=== PATIENT | male | born 1950 | race African-American/Black ===

== ENCOUNTER 2020-08-09 10:06 | Emergency (ER) | payer BC, OTHER ==
--- OUTSIDE RECORDS SUMMARY | 2020-08-09 10:10 | XMS REPORT | Continuity of Care Document ---
:1950 Author Organization [facility] t Address [address] [place] [address] Care Team Providers Name Role Phone Remigio Peters Attending Clinician [phone] Edison Gonzalez Attending Clinician VISIT, MARYBETH DOPPLER Attending Clinician Unavailable VISIT, [facility] XRAY Attending Clinician Unavailable Anastasiia Webb Attending Clinician Farooq Newman Attending Clinician Problems Condition Condition Condition Status Onset Resolution Last Treating Co mments Source Name Details Category Date Date Treatment Clinician Date Glaucoma Glaucoma Problem Active Richter ge 08-25 Family 00:00: Practic 00 e Hypertensi Hypertensi Problem Active [facility] ill[facility] ve ve 08-25 Family disorder Disorder 00:00: Practi c 00 e Peripheral Peripheral Problem Active 2019- [facility] vascular Vascular 08-25 Family disease Disease 00:00: Practic 00 e Glaucoma Problem Active 2013-042019-07-30 [facility] oria (disorder) 06-02 23:02:56 l Glaucoma 00:00: Josue n (disorder) 00 Active 04/01/2014 Problem 07/30/2019 Data migrated from elicit on 09/18/14. [facility] GLAUCOMA Condition Active 2013-042014-10-14 M emoria 2 09:21:50 l GLAUCOMA 00:00: Josue n 00 Active 04/01/2014 Condition 5 [facility] Group Hyperlipid Problem Active 2019-07-30 emoria emia 11-10 23:02:56 l (disorder) 00:00: Josue n Hyperlipid 00 emia (disorder) Active 11/10/2013 Problem 07/30/2019 Data migrated from elicit on 09/18/14. [facility] Group HYPERLIPID Condition Active 2013-0 2014-10-14 Memoria EMIA - 09:21:50 l 00:00: Wesly HYPERLIPID 00 EMIA Active 11/10/2013 Condition 5 [facility] Backache Problem Active 2019-07-30 Mem oria (finding) 23:02:56 l Backache Josue n (finding) Active Problem 07/30/2019 [facility] Group Benign Problem Active 2019-07-30 Memor ia essential 23:02:56 l hypertensi Benign Herm mecca on essential (disorder) hypertensi on (disorder) Active Problem 07/30/2019 Data migrated from elicit on 09/18/14. [facility] Group Hyperglyce Problem Active 2019-07-30 M emoria mar 23:02:56 l (disorder) Josue n Hyperglyce mar (disorder) Active Problem 07/30/2019 Data migrated from elicit on 09/18/14. 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 23:02:56 l finding Optic Wesly (finding) disc cup finding (finding) Active Problem 07/30/2019 [facility] Group Peripheral Problem Active 2019-07-30 M emoria nerve 23:02:56 l disease Wesly (disorder) Peripheral nerve disease (disorder) Active Problem 07/30/2019 [facility] Group 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 23:02:56 l (disorder) Spinal Herm mecca stenosis (disorder) Active Problem 07/30/2019 [facility] Group BACK PAIN Condition Active 2014-10-14 Memoria 09:21:50 l BACK [place] PAIN Active Condition 10/14/2014 Medical Group PVD Condition Active 2014-10-14 Mem oria 09:21:50 l PVD Wesly Active Condition 10/14/2014 Medical Group HYPERGLYCE Condition Active 2014-10-14 Memoria MAR 09:21:50 l [place] HYPERGLYCE MAR Active Condition 10/14/2014 Medical Group ESSENTIAL Condition Active 2014-10-14 Memoria HYPERTENSI 09:21:50 l ON, BENIGN Josue n ESSENTIAL HYPERTENSI ON, BENIGN Active Condition 10/14/2014 [facility] Group Allergies, Adverse Reactions, Alerts Allergy Allergy Status Severity Reaction(s) Onset Inactive Treating Comm ents Source Name Type Date Date Clinician methylPR methylPR Active Carmelita Dave EDNISolo 6-25 l ne<sup>1 ne<sup>1 05:00: Josue n </sup> </sup> 00 MEDROL MEDROL Active Memoria 6-25 l 00:00: [place] 00 Social History Social Habit Start Date Stop Date Quantity Comments Source Social History 2017-12-17 2017-12-[address] [facility] vignesh 13:54:51 13:54:51 Smoking Status Start Date Stop Date Source Former Smoker [facility] Family salty Medications Ordered Filled Start Stop Current Ordering Indication Dosage Frequency Signature Comments Components Source Medication Medication Date Date Medication? Clinician (SIG) Name Name amLODIPine Yes = 1 tab, Mem oria 5 mg oral 4-06 PO, Daily, l tablet 14:07: # 30 Wesly nieves 03 Refill(s) 5, Pharmacy: [facility] amLODIPine Yes = 1 tab, Mem oria 5 mg oral 3-10 PO, Daily, l tablet 21:24: patient Wesly 00 must be seen for additional refills., # 30 tab, 0 Refill(s), Pharmacy: [facility] tramadol Yes 50 mg = 1 Michael krista hydrochlori 1-23 tab, PO, l de 50 MG 15:31: BID, # 180 Her carrasco Oral Tablet 02 tab, 1 Refill(s) cilostazol Yes 100 mg = 1 M emoria 100 mg oral 1-23 tab, PO, l tablet 15:30: BID, # 180 Florinda nn 57 tab, 3 Refill(s), Pharmacy: [facility] amLODIPine Yes 5 mg = 1 Mem oria 5 mg oral 1-23 tab, PO, l tablet 15:30: Daily, # Gardners 54 90 tab, 3 Refill(s), Pharmacy: [facility] acetaZOLAMI 2019-0 No 500 mg = 1 Memoria DE 500 mg 1-23 cap, PO, l oral 15:09: BID, 0 Gardners capsule, 00 Refill(s) extended release Latanoprost Yes 1 drp, Michael krista chandrakant Bunod -23 BOTH EYES, l 0.24 MG/ML 15:09: QPM, 0 Florinda nn Ophthalmic 00 Refill(s) Solution [Vyzulta] tramadol 2017-04 No 50 mg = 1 Michael krista hydrochlori 0-16 tab, PO, l de 50 MG 17:42: BID, # 180 Her carrasco Oral Tablet 00 tab, 1 Refill(s) cilostazol 2017-04 No 100 mg = 1 M emoria 100 mg oral 0-16 tab, PO, l tablet 17:42: BID, # 180 Florinda nn 00 tab, 3 Refill(s), Pharmacy: [facility] [place] amLODIPine 2017-04 No 5 mg = 1 Mem oria 5 mg oral 0-16 tab, PO, l tablet 17:42: Daily, # Wesly 00 90 tab, 3 Refill(s), Pharmacy: [facility] tramadol 2017-04 No 50 mg = 1 Michael krista hydrochlori 0-15 tab, PO, l de 50 MG 19:50: BID, # 180 Her carrasco Oral Tablet 00 tab, 1 Refill(s) Super B Yes 1 tab, PO, Michael krista Complex 8-28 Daily, # l oral tablet 13:55: 30 tab, 0 H ermann 00 Refill(s) tramadol Yes 50 mg = 1 Michael krista hydrochlori 5-29 tab, PO, l de 50 MG 13:57: BID, X 30 Herm mecca Oral Tablet 00 day, # 60 tab, 3 Refill(s) PLETAL 100 Yes bid Memoria MG TABS 6-25 l 09:21: Gardners 50 PRAVACHOL 0 Yes qd Memoria 20 MG TABS 6-25 l 09:21: Wesly 50 MEDROL No as Memoria (DEEJAY) 4 MG 6-11 directed l TABS 00:00: Wesly 00 TRAMADOL 0 Yes 1 po q6h Memor ia HCL 50 MG 7-22 prn back l TABS 00:00: pain Wesly 00 CYCLOBENZAP Yes 1 po qhs Me moria RINE HCL 10 7-22 to relax l MG TABS 00:00: back TRAMADOL Yes 1 po q6h Memor ia HCL 50 MG 7-22 prn back l TABS 00:00: pain CYCLOBENZAP Yes 1 po qhs Me moria RINE HCL 10 7-22 to relax l MG TABS 00:00: back TRAMADOL Yes 1 po q6h Memor ia HCL 50 MG 7-22 prn back l TABS 00:00: pain CYCLOBENZAP Yes 1 po qhs Me moria RINE HCL 10 7-22 to relax l MG TABS 00:00: back LUMIGAN 2012-04 Yes one gtt Memoria 0.01 % SOLN 0-10 daily l 00:00: MELOXICAM 2012-04 Yes 1 po qam Michael krista 15 MG TABS 0-10 pc l 00:00: MELOXICAM 2012-04 Yes 1 po qam Michael krista 15 MG TABS 0-10 pc l 00:00: COMBIGAN Yes takes one Michael krista 0.2-0.5 % 9-13 drop twice l SOLN 00:00: a day TRAVATAN Z No take one Mem oria 0.004 % 9-13 drop once l SOLN 00:00: a day TRAVATAN Z No take one Mem oria 0.004 % 9-13 drop once l SOLN 00:00: a day AMLODIPINE Yes take one Mem oria BESYLATE 5 7-09 tab daily l MG TABS 00:00: AMLODIPINE Yes take one Mem oria BESYLATE 5 7-09 tab daily l MG TABS 00:00: AMLODIPINE Yes take one Mem oria BESYLATE 5 7-09 tab daily l MG TABS 00:00: acetazolami acetazolami No 1capsul BID acetazolam Village de ER 500 de ER 500 e(s) moreno ER 500 Family mg mg mg Practic capsule,ext capsule,ext capsule,ex e ended ended tended release release release Take 1 Take 1 Take 1 capsule capsule capsule twice a day twice a day twice a by oral by oral day by route. route. oral route. amlodipine amlodipine No 1 Q1D amlodipine [facility] 5 mg tablet 5 mg tablet 5 mg F amily Take 1 Take 1 tablet Practic tablet tablet Take 1 e every day every day tablet by oral by oral every day route. route. by oral route. Aspir-81 mg Aspir-81 mg No 1 Q1D Aspir-81 Village tablet,janene tablet,janene mg F amily yed release yed release tablet,del Practic Take 1 Take 1 ayed e tablet tablet release every day every day Take 1 by oral by oral tablet route. route. every day by oral route. cilostazol cilostazol No 1 BID cilostazol [facility] 100 mg 100 mg 100 mg Family tablet Take tablet Take tablet Practic 1 tablet 1 tablet Take 1 e twice a day twice a day tablet by oral by oral twice a route. route. day by oral route. Combigan Combigan No Combigan Peyton fly 0.2 %-0.5 % 0.2 %-0.5 % 0.2 %-0.5 Family eye drops eye drops % eye Prac tic INSTILL 1 INSTILL 1 drops e DROP INTO DROP INTO INSTILL 1 AFFECTED AFFECTED DROP INTO EYE(S) BY EYE(S) BY AFFECTED OPHTHALMIC OPHTHALMIC EYE(S) BY ROUTE EVERY ROUTE EVERY OPHTHALMIC 12 HOURS 12 HOURS ROUTE EVERY 12 HOURS Rhopressa Rhopressa No Rhopressa [facility] 0.02 % eye 0.02 % eye 0.02 % eye Family drops drops drops Practic INSTILL 1 INSTILL 1 INSTILL 1 e DROP INTO DROP INTO DROP INTO AFFECTED AFFECTED AFFECTED EYE(S) BY EYE(S) BY EYE(S) BY OPHTHALMIC OPHTHALMIC OPHTHALMIC ROUTE ONCE ROUTE ONCE ROUTE ONCE DAILY INTHE DAILY INTHE DAILY EVENING EVENING INTHE EVENING Vyzulta Vyzulta No Vyzulta Villag e 0.024 % eye 0.024 % eye 0.024 % Family drops drops eye drops Practic INSTILL 1 INSTILL 1 INSTILL 1 e DROP INTO DROP INTO DROP INTO AFFECTED AFFECTED AFFECTED EYE(S) BY EYE(S) BY EYE(S) BY OPHTHALMIC OPHTHALMIC OPHTHALMIC ROUTE ONCE ROUTE ONCE ROUTE ONCE DAILY INTHE DAILY INTHE DAILY EVENING EVENING INTHE EVENING Vital Signs Vital Name Observation Time Observation Value Comments Source Height 2019-08-26 00:00:00 73 [in_i] [facility] BMI (Body Mass Index) 2019-08-26 00:00:00 29 kg/m2 [facility] Body Weight 2019-08-26 00:00:00 220 [lb_av] [facility] Systolic (mm Hg) 2018-12-31 13:33:00 Michael rial [place] Diastolic (mm Hg) 2018-12-31 13:33:00 Mem orial [place] Heart Rate 2018-12-31 13:33:00 [facility] [place] Weight 2018-12-31 13:33:00 [facility] [place] Weight 2018-08-12 14:19:00 [facility] [place] BMI Calculated 2018-08-12 14:19:00 Memori al [place] Systolic (mm Hg) 2018-08-12 14:19:00 Michael rial [place] Diastolic (mm Hg) 2018-08-12 14:19:00 Mem orial [place] Heart Rate 2018-08-12 14:19:00 [facility] [place] Height 2018-08-12 14:19:00 182.88 cm [facility] [place] Temperature Oral (F) 2018-08-12 14:19:00 97.7 F [facility] [place] Weight 2018-05-14 15:04:00 [facility] [place] BMI Calculated 2018-05-14 15:04:00 Memori al [place] Height 2018-05-14 15:04:00 182.88 cm [facility] [place] Temperature Oral (F) 2018-05-14 15:04:00 97.8 F [facility] [place] Systolic (mm Hg) 2018-05-14 15:04:00 Michael rial [place] Diastolic (mm Hg) 2018-05-14 15:04:00 Mem orial [place] Heart Rate 2018-05-14 15:04:00 [facility] [place] Height 2017-12-17 13:51:00 185.42 cm [facility] [place] Weight 2017-12-17 13:51:00 [facility] [place] BMI Calculated 2017-12-17 13:51:00 Memori al [place] Systolic (mm Hg) 2017-12-17 13:51:00 Michael rial [place] Diastolic (mm Hg) 2017-12-17 13:51:00 Mem orial [place] Heart Rate 2017-12-17 13:51:00 [facility] BMI Calculated 2017-09-17 13:27:00 Memori al [place] Height 2017-09-17 13:27:00 180.34 cm [facility] Weight 2017-09-17 13:27:00 [facility] [place] Heart Rate 2017-09-17 13:27:00 [facility] [place] Systolic (mm Hg) 2017-09-17 13:27:00 Michael rial [place] Diastolic (mm Hg) 2017-09-17 13:27:00 Mem orial [place] Height 2017-03-20 14:54:00 180.34 cm [facility] BMI Calculated 2017-03-20 14:54:00 Memori al [place] Weight 2017-03-20 14:54:00 [facility] [place] Heart Rate 2017-03-20 14:54:00 [facility] [place] Systolic (mm Hg) 2017-03-20 14:54:00 Michael rial [place] Diastolic (mm Hg) 2017-03-20 14:54:00 Mem orial [place] Weight 2014-10-14 14:21:50 [facility] [place] Temperature Oral (F) 2014-10-14 14:21:50 97 F [facility] [place] Heart Rate 2014-10-14 14:21:50 [facility] [place] Systolic (mm Hg) 2014-10-14 14:21:50 Michael rial [place] Diastolic (mm Hg) 2014-10-14 14:21:50 Mem orial [place] Weight 2014-09-30 14:25:10 [facility] [place] Temperature Oral (F) 2014-09-30 14:25:10 98 F [facility] Heart Rate 2014-09-30 14:25:10 [facility] Systolic (mm Hg) 2014-09-30 14:25:10 Michael rial [place] Diastolic (mm Hg) 2014-09-30 14:25:10 Mem orial [place] Weight 2014-04-01 20:23:14 [facility] Temperature Oral (F) 2014-04-01 20:23:14 97.2 F [facility] Heart Rate 2014-04-01 20:23:14 [facility] Systolic (mm Hg) 2014-04-01 20:23:14 Michael rial [place] Diastolic (mm Hg) 2014-04-01 20:23:14 Mem orial [place] Weight 2013-11-10 15:47:40 [facility] Temperature Oral (F) 2013-11-10 15:47:40 97 F [facility] [place] Heart Rate 2013-11-10 15:47:40 [facility] [place] Systolic (mm Hg) 2013-11-10 15:47:40 Michael rial [place] Diastolic (mm Hg) 2013-11-10 15:47:40 Mem orial [place] Weight 2013-01-29 20:49:21 [facility] Heart Rate 2013-01-29 20:49:21 [facility] Systolic (mm Hg) 2013-01-29 20:49:21 Michael rial [place] Diastolic (mm Hg) 2013-01-29 20:49:21 Mem orial [place] Height 2013-01-29 20:49:21 [facility] [place] Height 2012-01-03 20:15:20 [facility] Weight 2012-01-03 20:15:20 [facility] Heart Rate 2012-01-03 20:15:20 [facility] Systolic (mm Hg) 2012-01-03 20:15:20 Michael rial [place] Diastolic (mm Hg) 2012-01-03 20:15:20 Mem orial [place] Procedures Procedure Date / Time Performed Performing Clinician [facility] e Eye examination 2016-11-20 05:00:00 Ben carrasco colonoscopy 2002-12-18 21:11:03 Ben carrasco Previous back surgery [facility] Darrel ermann Plan of Care Planned Activity Planned Date Details Comments Source Instructions [facility] Practice Encounters Start End Encounter Admission Attending Care Care Encounter Source Date/Time Date/Time Type Type Clinicians Facility Department ID 2020-08-08 2020-08-08 Outpatient Fran [facility] [id number] 00:00:00 00:00:00 Remigio [id number] Tate [id number] 2020-07-11 2020-07-11 Outpatient Fran [facility] [id number] 00:00:00 00:00:00 Remigio [id number] Tate [id number] 2020-06-03 2020-06-03 Outpatient Fran [facility] [id number] 00:00:00 00:00:00 Remigio [id number] Tate [id number] 2020-05-20 2020-05-20 Outpatient Fran [facility] [id number] 00:00:00 00:00:00 Remigio [id number] Tate [id number] 2019-08-26 2019-08-26 Kristina [facility] [place] - [id number] V illage 00:00:00 00:00:00 [facility] wes holder, DIESEL ENGINE I PIPE FITTER: Levi - Esther dale [address] [email or web address] [facility], [address], [place] [address] , Ph. 2019-07-27 2019-07-28 Outpatient [facility] [id number] 09:05:10 23:59:59 08 2019-06-30 2019-07-01 Outpatient [facility] [id number] 08:36:00 23:59:59 07 2019-02-17 2019-02-17 Outpatient Lisa, [facility] [id number] 09:00:00 09:00:00 Sydnee Hogan 2019-01-15 2019-01-15 Outpatient VISIT, [facility] [id number] 08:30:00 23:59:59 NURSE [facility] 27 DOPPLER 2019-01-12 2019-01-13 Outpatient [facility] [id number] 10:44:05 10:44:05 21 2019-01-12 2019-01-13 Outpatient [facility] [id number] 10:43:44 10:43:44 20 2019-01-12 2019-01-13 Outpatient [facility] [id number] 10:43:15 10:43:15 19 2019-01-04 2019-01-05 Outpatient [facility] [id number] 10:56:27 10:56:27 18 2019-01-01 2019-01-02 Outpatient [facility] [id number] 16:37:49 16:37:49 17 2018-12-31 2018-12-31 Outpatient VISIT, [facility] [id number] 09:45:00 23:59:59 NURSE [facility] 26 XRAY 2018-12-31 2018-12-31 Outpatient Konawa, [facility] [id number] 08:30:00 23:59:59 Mireya 25 me Laurent 2018-08-12 2018-08-12 Outpatient Lisa, MG MG [id number] 09:15:00 23:59:59 Sydnee Moe [facility] [place] 2018-07-20 2018-07-21 Outpatient MG MG [id number] 07:57:04 07:57:04 15 2018-05-14 2018-05-14 Outpatient Lisa, MG MG [id number] 09:15:00 23:59:59 Sydnee 20 [facility] 2018-05-14 2018-05-14 Outpatient Lisa, MG MG [id number] 09:15:00 23:59:59 Sydnee 20 [facility] 2018-02-03 2018-02-04 Outpatient MG MG [id number] 13:32:00 23:59:59 06 2017-12-17 2017-12-17 Outpatient Trent, [facility] [id number] 09:00:00 23:59:59 Ramon Trivedi 2017-09-17 2017-09-17 Outpatient Trent, [facility] [id number] 08:30:00 23:59:59 Ramon Trivedi 2017-07-22 2017-07-23 Outpatient MG MG [id number] 09:17:00 23:59:59 05 2017-03-20 2017-03-20 Outpatient Trent, [facility] [id number] 09:00:00 23:59:59 Ramon Trivedi Results Test Description Test Time Test Comments Results Result Comments Source Chemistry 2014-09-24 138 [facility] Florinda nn 14:05:00 Chemistry 2014-09-24 4.3 [facility] [place] nn 14:05:00 Chemistry 2014-09-24 3.7 [facility] [place] nn 14:05:00 Chemistry 2014-09-24 8.7 [facility] [place] nn 14:05:00 Chemistry 2014-09-24 0.88 [facility] [place] nn 14:05:00 Chemistry 2014-09-24 11 [facility] [place] nn 14:05:00 Chemistry 2014-09-24 54 [facility] [place] nn 14:05:00 Chemistry 2014-09-24 19 [facility] [place] nn 14:05:00 Chemistry 2014-09-24 18 [facility] [place] nn 14:05:00 Chemistry 2014-09-24 157 [facility] [place] nn 14:05:00 Chemistry 2014-09-24 37 [facility] [place] nn 14:05:00 Chemistry 2014-09-24 108 [facility] [place] nn 14:05:00 Chemistry 2014-09-24 1.56 [facility] [place] nn 14:05:00 Hematology 2014-09-24 13.2 [facility] [place] nn 14:05:00 Hematology 2014-09-24 42.0 [facility] [place] nn 14:05:00 Chemistry 2014-03-24 135 [facility] [place] nn 14:03:00 Chemistry 2014-03-24 4.3 [facility] [place] nn 14:03:00 Chemistry 2014-03-24 135 [facility] [place] nn 14:03:00 Chemistry 2014-03-24 4.3 [facility] [place] nn 14:03:00 Chemistry 2014-03-24 3.8 [facility] [place] nn 14:03:00 Chemistry 2014-03-24 8.8 [facility] [place] nn 14:03:00 Chemistry 2014-03-24 0.82 [facility] [place] nn 14:03:00 Chemistry 2014-03-24 12 [facility] [place] nn 14:03:00 Chemistry 2014-03-24 57 [facility] [place] nn 14:03:00 Chemistry 2014-03-24 21 [facility] [place] nn 14:03:00 Chemistry 2014-03-24 28 [facility] [place] nn 14:03:00 Chemistry 2014-03-24 162 [facility] [place] nn 14:03:00 Chemistry 2014-03-24 38 [facility] [place] nn 14:03:00 Chemistry 2014-03-24 116 [facility] [place] nn 14:03:00 Chemistry 2014-03-24 1.16 [facility] [place] nn 14:03:00 Chemistry 2014-03-24 1.31 [facility] [place] nn 14:03:00 Hematology 2014-03-24 13.5 [facility] [place] nn 14:03:00 Hematology 2014-03-24 41.5 [facility] [place] nn 14:03:00 Chemistry 2013-01-29 .51 [facility] [place] nn 13:58:38 Chemistry 2013-01-29 . [facility] [place] nn 13:58:38 Chemistry 2011-08-22 1.12 [facility] [place] nn 21:12:33 Chemistry 2011-08-22 1.12 [facility] [place] nn 21:12:33 Chemistry 2010-07-31 . [facility] [place] nn 14:24:50 Chemistry 2010-07-31 . [facility] nn 14:24:50
[2020-08-09 12:36] LABS: Absolute Lymphocytes (CBC) 1.2 K/uL (0.7-4.9); Basophils % 0.4 % (0-1.3); Hematocrit 41.2 % (39.6-49.0); Lymphocytes % 30.2 % (15.3-44.8); MPV 9.6 fL (7.6-11.3)
--- NOTE | 2020-08-09 12:48 | RAD REPORT ---
EXAM DESCRIPTION: RAD - Chest Single View - 08/09/2020 12:06 pm CLINICAL HISTORY: DYSPNEA COMPARISON: None TECHNIQUE: AP portable chest image was obtained 08/09/2020 12:06 pm . FINDINGS: Lungs are clear. Heart and vasculature are normal. No measurable pleural effusion and no p neumothorax. No acute bony abnormality seen. No acute aortic findings suspected. IMPRESSION: No acute cardiopulmonary process.
[2020-08-09 12:56] LABS: BUN Blood Urea Nitrogen 10 mg/dL (7-18); Bicarbonate 28 mmol/L (21-32); Glucose Level 88 mg/dL (74-106); NT PRO-BNP 135 pg/mL (<125); Potassium 4.1 mmol/L (3.5-5.1); Sodium Level 143 mmol/L (136-145); Troponin (Emerg Dept Use Only) < 0.02 ng/mL (0.0-0.045)
--- NOTE | 2020-08-09 13:02 | EDPHYS ---
Physician Documentation [facility] Name: Александр Henderson Age: 70 yrs Sex: Male : 1950 Arrival Date: 08/09/2020 Time: 10:12 Bed 13 Private MD: ED Physician Dany Barrow HPI: 08/09 11:30 This 70 yrs old Black Male presents to ER via Unassigned with complaints of Shortness rn Of Breath, Numbness Of Arm. 11:30 The patient has shortness of breath at rest. Onset: The symptoms/episode began/occurred rn 2 week(s) ago. Duration: The symptoms are intermittent. The patient's shortness of breath is aggravated by nothing, is alleviated by nothing. Associated signs and symptoms: Pertinent positives: This patient does not have any pertinent positive signs or symptoms associated with shortness of breath. Pertinent negatives: chest pain, non-productive cough, productive cough, fever, hemoptysis, loss of consciousness. Severity of symptoms: At their worst the symptoms were mild in the emergency department the symptoms are unchanged. The patient has experienced similar episodes in the past. The patient has been recently seen by a physician:. Reports 2 weeks of intermittent sob, not worse with exertion, no fever/cough/chest pain/hemoptysis. Assoc with left arm tingling. Reports hurt neck "a long time ago", and has had weakness and tingling of LUE, but recently felt some tingling of the left middle finger that was new to him. Seen for these complaints 2 weeks ago at [facility], told everything ok, told to f/u with cardiology. States had either ct scan of chest or stress test and told was normal at that time as well. No new symptoms, thought to come here because symptoms didn't go away. . Historical: - Allergies: 11:37 No Known Allergies; vg1 - Home Meds: 11:37 Acetazolamide Oral [Active]; cilostazol 100 mg oral tab [Active]; Combigan ophthalmic vg1 ophthalmic [Active]; amlodipine 5 mg tab [Active]; Aspirin Oral [Active]; vzulta [Active]; - PMHx: 11:38 Glaucoma; Hypertension; vg1 - PSHx: 11:38 Right leg stent; vg1 - Immunization history:: Adult Immunizations up to date, Client reports receiving the 2nd dose of the Covid vaccine. - Social history:: Smoking status: Patient/guardian denies using tobacco, but has a distant history of tobacco abuse. - Family history:: not pertinent. - Hospitalizations: : No recent hospitalization is reported. ROS: 11:30 Constitutional: Negative for fever, chills, and weight loss, Eyes: Negative for injury, rn pain, redness, and discharge, Neck: Negative for injury, pain, and swelling, Cardiovascular: Negative for chest pain, palpitations, and edema, Respiratory: Negative for cough, wheezing, and pleuritic chest pain, Abdomen/GI: Negative for abdominal pain, nausea, vomiting, diarrhea, and constipation, Back: Negative for injury and pain, : Negative for injury, bleeding, discharge, and swelling, MS/Extremity: Negative for injury and deformity, Skin: Negative for injury, rash, and discoloration, Neuro: Negative for headache, and seizure. Exam: 11:30 Constitutional: This is a well developed, well nourished patient who is awake, alert, rn and in no acute distress. Ambulatory to room without difficulty or labored breathing. Head/Face: Normocephalic, atraumatic. Cardiovascular: Regular rate and rhythm. No pulse deficits. Respiratory: No increased work of breathing, no retractions or nasal flaring. Clear bilateral breath sounds. Abdomen/GI: soft, non-tender Skin: Warm, dry with normal turgor. Normal color with no rashes, no lesions, and no evidence of cellulitis. MS/ Extremity: Pulses equal, no cyanosis. Neurovascular intact. Full, normal range of motion. Equal circumference. Neuro: Awake and alert, GCS 15, oriented to person, place, time, and situation. Cranial nerves II-XII grossly intact. Motor strength 5/5 in all extremities. Sensory grossly intact. Cerebellar exam normal. Normal gait. Vital Signs: 11:30 BP 145 / 83; Pulse 64; Resp 16; Temp 98.4; Pulse Ox 99% on R/A; Weight 102.06 kg; vg1 Height 6 ft. 1 in. (185.42 cm); Pain 0/10; 12:00 BP 146 / 71; Pulse 52; Resp 18; Pulse Ox 96% on R/A; vg1 11:30 Body Mass Index 29.68 (102.06 kg, 185.42 cm) vg1 MDM: 11:19 Patient medically screened. rn 13:01 Differential diagnosis: Myocardial Infarction Pneumothorax pulmonary edema. Data rn reviewed: vital signs, nurses notes, lab test result(s), EKG, radiologic studies, plain films, and as a result, I will discharge patient. Counseling: I had a detailed discussion with the patient and/or guardian regarding: the historical points, exam findings, and any diagnostic results supporting the discharge/admit diagnosis, lab results, radiology results, the need for outpatient follow up, to return to the emergency department if symptoms worsen or persist or if there are any questions or concerns that arise at home. Special discussion: I discussed with the patient/guardian in detail that at this point there is no indication for admission to the hospital. It is understood, however, that if the symptoms persist or worsen the patient needs to return immediately for re-evaluation. Based on the history and exam findings, there is no indication for further emergent testing or inpatient evaluation. I discussed with the patient/guardian the need to see the catalogue maker for further evaluation of the symptoms. ED course: No new findings today, will dc home with cardiology f/u as planned prior to today's visit. . 08/09 11:30 Order name: Basic Metabolic Panel rn 08/09 11:30 Order name: CBC with Diff rn 08/09 11:30 Order name: NT PRO-BNP rn 08/09 11:30 Order name: Troponin (emerg Dept Use Only) rn 08/09 11:30 Order name: Basic Metabolic Panel; Complete Time: 13:00 EDMS 08/09 11:30 Order name: CBC with Automated Diff; Complete Time: 13:00 EDMS 08/09 11:30 Order name: XRAY Chest (1 view); Complete Time: 13:00 rn 08/09 11:30 Order name: EKG; Complete Time: 11: rn 08/09 11:30 Order name: Cardiac monitoring; Complete Time: 12: rn 08/09 11:30 Order name: EKG - Nurse/Tech; Complete Time: 12: rn 08/09 11:30 Order name: IV Saline Lock; Complete Time: 12: rn 08/09 11:30 Order name: Labs collected and sent; Complete Time: 12: rn 08/09 11:30 Order name: NT PRO-BNP; Complete Time: 13:00 EDMS 08/09 11:30 Order name: Troponin (Emerg Dept Use Only); Complete Time: 13:00 EDMA 08/09 11:30 Order name: O2 Per Protocol; Complete Time: 12:11 rn 08/09 11:30 Order name: O2 Sat Monitoring; Complete Time: 12:11 rn Administered Medications: No medications were administered Disposition: 08/09/20 13:02 Discharged to Home. Impression: Chest pain, unspecified. - Condition is Stable. - Discharge Instructions: Cervical Radiculopathy, Nonspecific Chest Pain, Pain Without a Known Cause, Peripheral Neuropathy. - Prescriptions for Medrol (Horace) 4 mg Oral Tablets, Dose Pack - take 1 tablet by ORAL route as directed - follow package instructions; 1 packet. - Medication Reconciliation Form, Thank You Letter, Antibiotic Education, Prescription Opioid Use form. - Follow up: Private Physician; When: As needed; Reason: Recheck today's complaints, Re-evaluation by your physician. - Problem is an ongoing problem. - Symptoms have improved. Signatures: Dispatcher [employer] [facility] Dany Barrow MD MD rn Reji, Willa RN RN vg1 Corrections: (The following items were deleted from the chart) 13:35 13:02 08/09/2020 13:02 Discharged to Home. Impression: Chest pain, unspecified. vg1 Condition is Stable. Forms are Medication Reconciliation Form, Thank You Letter, Antibiotic Education, Prescription Opioid Use. Follow up: Private Physician; When: As needed; Reason: Recheck today's complaints, Re-evaluation by your physician. Problem is an ongoing problem. Symptoms have improved. rn
--- NOTE | 2020-08-09 13:02 | ER ---
Nurse's Notes [facility] Name: Александр Henderson Age: 70 yrs Sex: Male : 1950 Arrival Date: 08/09/2020 Time: 10:12 Bed 13 Private MD: Diagnosis: Chest pain, unspecified Presentation: 08/09 11:30 Chief complaint: Patient states: Shortness of breath for about a week, Denies cough, vg1 denies pain upon deep inhalation; states numbness in left first and second fingers and thumb; states has 'some blurred vision'. Pt states feels 'gurgling' in LUQ that comes and goes. Coronavirus screen: Client denies travel out of the [place] in the last 14 days. Ebola Screen: Patient negative for fever greater than or equal to 101.5 degrees Fahrenheit, and additional compatible Ebola Virus Disease symptoms. Initial Sepsis Screen: Does the patient meet any 2 criteria? No. Patient's initial sepsis screen is negative. Does the patient have a suspected source of infection? No. Patient's initial sepsis screen is negative. Risk Assessment: Do you want to hurt yourself or someone else? Patient reports no desire to harm self or others. Onset of symptoms was December 02, 2020. 11:30 Method Of Arrival: Ambulatory vg1 11:30 Acuity: BILLIE 3 vg1 Historical: - Allergies: 11:37 No Known Allergies; vg1 - Home Meds: 11:37 Acetazolamide Oral [Active]; cilostazol 100 mg oral tab [Active]; Combigan ophthalmic vg1 ophthalmic [Active]; amlodipine 5 mg tab [Active]; Aspirin Oral [Active]; vzulta [Active]; - PMHx: 11:38 Glaucoma; Hypertension; vg1 - PSHx: 11:38 Right leg stent; vg1 - Immunization history:: Adult Immunizations up to date, Client reports receiving the 2nd dose of the Covid vaccine. - Social history:: Smoking status: Patient/guardian denies using tobacco, but has a distant history of tobacco abuse. - Family history:: not pertinent. - Hospitalizations: : No recent hospitalization is reported. Screenin:38 Abuse screen: Denies threats or abuse. Nutritional screening: No deficits noted. vg1 Tuberculosis screening: No symptoms or risk factors identified. Fall Risk No fall in past 12 months (0 pts). No secondary diagnosis (0 pts). IV access (20 points). Ambulatory Aid- Crutches/Cane/Walker (15 pts). Gait- Normal/Bed Rest/Wheelchair (0 pts) Mental Status- Oriented to own ability (0 pts). Total Lal Fall Scale indicates Low Risk Score (25-44 pts). Fall prevention measures have been instituted. Side Rails Up X 2 Placed close to Nursing Station Family Present and informed to notify staff if they need to leave bedside. Assessment: 11:30 General: Appears in no apparent distress. comfortable, Behavior is calm, cooperative. vg1 Pain: Denies pain. Neuro: Level of Consciousness is awake, alert, obeys commands, Oriented to person, place, time, situation, Utility Worker are equal bilaterally Reports blurred vision numbness in left index finger, left middle finger, and left thumb. Cardiovascular: Patient's skin is warm and dry. Rhythm is sinus bradycardia. Respiratory: Airway is patent Respiratory effort is even, unlabored, Breath sounds are clear bilaterally. Respiratory: Parent/caregiver reports the patient having shortness of breath on exertion. GI: No signs and/or symptoms were reported involving the gastrointestinal system. : No signs and/or symptoms were reported regarding the genitourinary system. EENT: No signs and/or symptoms were reported regarding the EENT system. Derm: Skin is intact, is healthy with good turgor. Musculoskeletal: Circulation, motion, and sensation intact. Vital Signs: 11:30 BP 145 / 83; Pulse 64; Resp 16; Temp 98.4; Pulse Ox 99% on R/A; Weight 102.06 kg; vg1 Height 6 ft. 1 in. (185.42 cm); Pain 0/10; 12:00 BP 146 / 71; Pulse 52; Resp 18; Pulse Ox 96% on R/A; vg1 11:30 Body Mass Index 29.68 (102.06 kg, 185.42 cm) vg1 ED Course: 10:12 Patient arrived in ED. mr 11:19 Dany Barrow MD is Attending Physician. rn 11:30 Willa Mendoza, RN is Primary Nurse. vg1 11:34 Triage completed. vg1 11:39 Patient has correct armband on for positive identification. Bed in low position. Call vg1 light in reach. Side rails up X 1. 12:06 XRAY Chest (1 view) In Process Unspecified. EDMS 12:30 Initial lab(s) drawn, by me, sent to lab. EKG done, by ED staff, reviewed by Dany Barrow MD. Inserted saline lock: 20 gauge in right antecubital area, using aseptic technique. Blood collected. 13:28 No provider procedures requiring assistance completed. IV discontinued, intact, ss bleeding controlled, No redness/swelling at site. Pressure dressing applied. Administered Medications: No medications were administered Outcome: 13:02 Discharge ordered by . rn 13:28 Discharged to home ambulatory. ss 13:28 Condition: good 13:28 Discharge instructions given to patient, family, Instructed on discharge instructions, follow up and referral plans. Demonstrated understanding of instructions, follow-up care, Prescriptions given X 1. 13:35 Patient left the ED. vg1 Signatures: Dispatcher [employer] EDOR Carolyne Welsh mr Barrow, MD MD caesar Saenz Shelby, RN RN ss Garcia, Victoria RN RN vg1
[2020-08-09 13:40] VITALS: TEMP 98.4
[2020-08-09 13:41] VITALS: BP 146/71; O2SAT 96
--- NOTE | 2020-08-10 16:12 | EKG ---
Test Date: 2020-08-09 Test Time: 12:18:41 Category Director: LEV MEASUREMENT RESULTS: Intervals: Rate: 51 [place]: 176 QRSD: 82 QT: 466 QTc: 429 [place]: P: 60 [place]: 176 QRS: 48 T: 21 INTERPRETIVE STATEMENTS: Sinus bradycardia Otherwise normal ECG Compared to ECG 08/22/1992 13:18:00 Sinus rhythm no longer present Electronically Signed On 08-10-20 16:07:19 CDT by Colt Sotelo
== END 2020-08-09 13:35 | disposition home or self-care (01) ==
LOC: ER 10:06
DX: R07.9 Chest pain, unspecified (principal); I10 Essential (primary) hypertension; Z79.82 Long term (current) use of aspirin
CPT/HCPCS: 36415; 71045; 80048; 83880; 84484; 85025; 93005; 99284

== ENCOUNTER 2021-06-08 17:36 | Inpatient (IN) | payer OTHER ==
--- OUTSIDE RECORDS SUMMARY | 2021-06-08 17:40 | XMS REPORT | Continuity of Care Document ---
:1950 Author Organization [facility] t Address [address] [place] [address] Care Team Providers Name Role Phone BREANA Attending Clinician Unavailable TY CAMPA Attending Clinician Unavailable Remigio Peters Attending Clinician [phone] HENRRY Attending Clinician Unavailable Adyo_A_AH Attending Clinician Unavailable BREANA Admitting Clinician Unavailable KATHERYN Admitting Clinician Unavailable HENRRY Admitting Clinician Unavailable Colleenayo_A_AH Admitting Clinician Unavailable Payers Payer Name Policy Type Policy Number Effective Date Expiration Date [facility] [id number] (MEDICARE REPLACEMENT/ADVANT AGE - PPO) [employer] [place] [id number] 2020 2021 (MEDICARE 00:00:00 00:00:00 REPLACEMENT/ADVANT AGE - HMO) [employer] [place] - [id number] 2019 [facility] 00:00:00 (MEDICARE REPLACEMENT/ADVANT AGE - HMO) Problems Condition Condition Condition Status Onset Resolution Last Treating Co mments Source Name Details Category Date Date Treatment Clinician Date Glaucoma Glaucoma Problem Active [facility] -06 Family 00:00: Practic 00 e Hypertensi Hypertensi Problem Active [facility] - Family disorder Disorder 00:00: Practi c 00 e Peripheral Peripheral Problem Active [facility] - Family disease Disease 00:00: Practic 00 e Allergies, Adverse Reactions, Alerts This patient has no known allergies or adverse reactions. Social History Smoking Status Start Date Stop Date Source Former [facility] Medications Ordered Filled Start Stop Current Ordering Indication Dosage Frequency Signature Comments Components Source Medication Medication Date Date Medication? Clinician (SIG) Name Name acetazolami acetazolami No 1capsul BID acetazolam [facility] [...] route. amlodipine amlodipine No 1 Q1D amlodipine [facility] 5 mg tablet 5 mg tablet 5 [...] route. cilostazol cilostazol No 1 BID cilostazol [facility] 100 mg 100 mg 100 mg Family [...] EVERY 12 HOURS Rhopressa Rhopressa No Rhopressa [facility] 0.02 % eye 0.02 % eye 0.02 [...] Comments Source Height 2019-08-26 00:00:00 73 [in_i] [facility] BMI (Body Mass 2019-08-26 00:00:00 29 kg/m2 [facility] Family Index) Practice Body Weight 2019-08-26 00:00:00 220 [lb_av] [facility] Procedures This patient has no known procedures. Plan of Care Planned Activity Planned Date Details Comments Source Instructions [facility] Encounters Start End Encounter Admission Attending Care Care Encounter Source Date/Time Date/Time Type Type Clinicians Facility Department ID 2021-06-01 2021-06-01 Outpatient ERICKSON_R [facility] [address] 11:25:00 11:25:00 [facility] 2021-05-25 2021-05-25 Outpatient KATHERYN, [facility] [id number] 00:00:00 00:00:00 IRFAN [address] 2021-03-28 2021-03-28 Outpatient ERICKSON_R [facility] [address] 04:26:00 04:26:00 1221 [facility] 2021-03-28 2021-03-28 Outpatient ERICKSON_R [facility] [address] 04:26:00 04:26:00 0110 [facility] 2021-03-13 2021-03-13 Outpatient ERICKSON_R [facility] [address] 10:06:00 10:06:00 1122 [facility] 2021-03-13 2021-03-13 Outpatient Peters, [facility] [id number] 00:00:00 00:00:00 Remigio [id number] [place] [id number] 2021-03-02 2021-03-02 Outpatient ERICKSON_R [facility] [address] 10:51:00 10:51:00 1111 [facility] 2021-03-02 2021-03-02 Outpatient Fran, [facility] [id number] 00:00:00 00:00:00 Remigio [id number] [place] [id number] 2021-02-14 2021-02-14 Outpatient ERICKSON_R [facility] [address] 10:15:00 10:15:00 1026 [facility] 2021-02-14 2021-02-14 Outpatient Fran, [facility] [id number] 00:00:00 00:00:00 Remigio [id number] [place] [id number] 2021-02-10 2021-02-10 Outpatient ERICKSON_R [facility] [address] 11:46:00 11:46:00 1022 [facility] 2021-01-10 2021-01-10 Outpatient ERICKSON_R [facility] [address] [place] 03:42:00 03:42:00 0921 [facility] 2021-01-10 2021-01-10 Outpatient Fran, [facility] [id number] 00:00:00 00:00:00 Remigio [id number] [place] [id number] 2020-11-22 2020-11-22 Outpatient ERICKSON_R [facility] [address] 10:35:00 10:35:00 0803 [facility] 2020-11-22 2020-11-22 Outpatient Peters, [facility] [id number] 00:00:00 00:00:00 Remigio [id number] [place] [id number] 2020-10-13 2020-10-13 Outpatient ERICKSON_R [facility] [address] 05:15:00 05:15:00 0624 [facility] 2020-10-13 2020-10-13 Outpatient Fran [facility] [id number] 00:00:00 00:00:00 Remigio [id number] Tate [id number] 2020-08-22 2020-08-22 Outpatient ERICKSON_R [facility] [address] 10:36:00 10:36:00 0503 [facility] 2020-08-22 2020-08-22 Outpatient Fran [facility] [id number] 00:00:00 00:00:00 Remigio [id number] [place] [id number] 2020-08-17 2020-08-18 Outpatient Jose VIRGENDEBBIE, [facility] [id number] 14:09:00 17:58:00 MELI 2020-08-08 2020-08-08 Outpatient ERICKSON_R [facility] [address] 11:23:00 11:23:00 0419 [facility] 2020-08-08 2020-08-08 Outpatient Fran [facility] [id number] 00:00:00 00:00:00 Remigio [id number] Tate [id number] 2020-07-11 2020-07-11 Outpatient ERICKSON_R [facility] [address] 03:37:00 03:37:00 0322 [facility] 2020-07-11 2020-07-11 Outpatient Fran, [facility] [id number] 00:00:00 00:00:00 Remigio [id number] Tate [id number] 2020-06-13 2020-06-13 Outpatient ERICKSON_R [facility] [address] 02:12:00 02:12:00 0222 [facility] 2020-06-03 2020-06-03 Outpatient ERICKSON_R [facility] [address] 04:29:00 04:29:00 0212 [facility] 2020-06-03 2020-06-03 Outpatient Fran, [facility] [id number] 00:00:00 00:00:00 Remigio [id number] Tate [id number] 2020-05-26 2020-05-26 Outpatient ERICKSON_R [facility] [address] 12:03:00 12:03:00 0204 [facility] 2020-05-20 2020-05-20 Outpatient ERICKSON_R [facility] [address] 12:22:00 12:22:00 0129 [facility] 2020-05-20 2020-05-20 Outpatient Fran [facility] [id number] 00:00:00 00:00:00 Remigio [id number] [place] [id number] 2020-05-16 2020-05-16 Outpatient ERICKSON_R [facility] [address] [place] 10:56:00 10:56:00 0125 [facility] 2019-12-17 2019-12-17 Outpatient Evans-Mbayo VFP VFP [id number] [facility] 01:54:00 01:54:00 _A_AH [id number] Family Practic e 2019-12-16 2019-12-16 Outpatient Evans-Mbayo VFP VFP [id number] [facility] 03:09:00 03:09:00 _A_AH [id number] Family Practic e 2019-12-09 2019-12-09 Outpatient Evans-Mbayo VFP VFP [id number] [facility] 09:55:00 09:55:00 _A_AH [id number] Family Practic e 2019-12-09 2019-12-09 Outpatient Evans-Mbayo VFP VFP [id number] [facility] 09:55:00 09:55:00 _A_AH 27717 Family Practic e 2019-12-07 2019-12-07 Outpatient Evans-Mbayo VFP VFP [id number] [facility] 06:48:00 06:48:00 _A_AH [id number] Family Practic e 2019-12-02 2019-12-02 Outpatient Evans-Mbayo VFP VFP [id number] [facility] 03:11:00 03:11:00 _A_AH [id number] Family Practic e 2019-11-25 2019-11-25 Outpatient Evans-Mbayo VFP VFP [id number] [facility] 04:06:00 04:06:00 _A_AH 35719 Family Practic e 2019-11-17 2019-11-17 Outpatient Evans-Mbayo VFP VFP [id number] [facility] 02:07:00 02:07:00 _A_AH [id number] Family Practic e 2019-11-09 2019-11-09 Outpatient Evans-Mbayo VFP VFP [id number] [facility] 04:24:00 04:24:00 _A_AH [id number] Family Practic e 2019-10-20 2019-10-20 Outpatient Evans-Mbayo VFP VFP [id number] [facility] 07:32:00 07:32:00 _A_AH [id number] Family Practic e 2019-10-20 2019-10-20 Outpatient Evans-Mbayo VFP VFP [id number] [facility] 07:32:00 07:32:00 _A_AH [id number] Family Practic e 2019-10-13 2019-10-13 Outpatient Evans-Mbayo VFP VFP [id number] [facility] 01:25:00 01:25:00 _A_AH [id number] Family Practic e 2019-09-18 2019-09-18 Outpatient Evans-Mbayo VFP VFP [id number] [facility] 03:03:00 03:03:00 _A_AH [id number] Family Practic e 2019-09-18 2019-09-18 Outpatient Evans-Mbayo VFP VFP [id number] [facility] 03:03:00 03:03:00 _A_AH [id number] Family Practic e 2019-09-17 2019-09-17 Outpatient Evans-Mbayo VFP VFP [id number] [facility] 07:27:00 07:27:00 _A_AH [id number] Family Practic e 2019-08-31 2019-08-31 Outpatient Evans-Mbayo VFP VFP [id number] [facility] 11:00:00 11:00:00 _A_AH [id number] Family Practic e 2019-08-26 2019-08-26 Kristina VFP [place] - [id number] [facility] 00:00:00 00:00:00 EvansShayla [facility] Raymon holder EMERGENCY MEDICINE PHYSICIAN ASSISTANT: Medical - Practi c [address] [email or web address] [email or web address], [place] [address], [place] [address] , Ph. 2019-07-20 2019-07-20 Outpatient Leonidas [facility] [id number] [facility] 04:09:00 04:09:00 _A_ [id number] Family Practic e Results This patient has no known results.
[2021-06-08 19:01] LABS: Absolute Lymphocytes (CBC) 1.3 K/uL (0.7-4.9); Hematocrit 45.4 % (39.6-49.0); Lymphocytes % 8.6 % (15.3-44.8); MPV 8.9 fL (7.6-11.3); RBC Red Blood Cell Count 5.11 M/uL (4.33-5.43)
[2021-06-08 19:02] LABS: Protime INR 1.27
--- NOTE | 2021-06-08 19:03 | RAD REPORT ---
EXAM DESCRIPTION: CT - Ct Stroke Brain Wo Cont - 06/08/2021 6:43 pm CLINICAL HISTORY: confusion onset at 1600 COMPARISON: No comparisons TECHNIQUE: Axial 5 millimeter thick images of the head were obtained without IV contrast. All CT scans are performed using dose optimization technique as appropriate and may include automated exposure control or mA/KV adjustment according to patient size. FINDINGS: No intracranial hemorrhage, mass, or cerebral edema. No acute cortical based infarction id entifiable. No cortical edema or sulcal effacement. Atrophy changes are minimal. Scattered chronic is chemic changes are seen in the cerebral white matter. Ventricles are in proportion to the minimal vol ume loss. No extra-axial fluid collections. Patten matter-white matter differentiation is preserved. Arterial and physiologic calcifications are present. Visualized portions of the mastoid air cells, paranasal sinuses, and orbits are unremarkable. Findings telephoned to doctor Lopez 6:52 p.m. IMPRESSION: No CT evidence of acute intracranial process. Atrophy is minimal. Scattered chronic ischemic changes are present. Chronic ischemic changes can mask nonhemorrhagic acute infarction. MR brain followup can be obtained if there is ongoing concern for acute ischemia.
[2021-06-08 19:20] LABS: Albumin 3.5 g/dL (3.4-5.0); Bilirubin Direct 0.4 mg/dL (0-0.2); Bilirubin Total 1.2 mg/dL (0.2-1.0); Potassium 3.6 mmol/L (3.5-5.1); Protein, Total 8.1 g/dL (6.4-8.2)
--- NOTE | 2021-06-08 19:26 | RAD REPORT ---
EXAM DESCRIPTION: RAD - Chest Single View - 06/08/2021 7:18 pm CLINICAL HISTORY: altered mental status COMPARISON: July 2020 TECHNIQUE: AP portable chest image was obtained 06/08/2021 7:18 pm . FINDINGS: Lungs are clear. Interstitial pattern matches comparison. Heart and vasculature are normal . No measurable pleural effusion and no pneumothorax. No acute bony abnormality seen. No acute aortic findings suspected. IMPRESSION: No acute cardiopulmonary process.
--- NOTE | 2021-06-08 19:52 | ER ---
Nurse's Notes [facility] Name: Александр Henderson Age: 71 yrs Sex: Male : 1950 Arrival Date: 06/08/2021 Time: 17:41 Bed 6 Private MD: Diagnosis: Transient alteration of awareness Presentation: 06/08 18:24 Chief complaint: Spouse and/or significant other states: Spouse states she checked pt ss7 bp \T\1600 and it read error. She states pt was talking different and acting strange; altered LOC. She states she has noted improvement but now he is c/o weakness and chills. Coronavirus screen: Vaccine status: Patient reports receiving the 2nd dose of the covid vaccine. Client denies travel out of the [place] in the last 14 days. Ebola Screen: Patient negative for fever greater than or equal to 101.5 degrees Fahrenheit, and additional compatible Ebola Virus Disease symptoms Patient denies exposure to infectious person. Patient denies travel to an Ebola-affected area in the 21 days before illness onset. Initial Sepsis Screen: Does the patient meet any 2 criteria? No. Patient's initial sepsis screen is negative. Does the patient have a suspected source of infection?. Risk Assessment: Do you want to hurt yourself or someone else? Patient reports no desire to harm self or others. Onset of symptoms was June 08, 2021. 18:24 Method Of Arrival: Ambulatory 7 18:24 Acuity: BILLIE 2 ss7 Triage Assessment: 18:30 Neuro: No deficits noted. Neuro: Level of Consciousness is awake, alert, obeys ss7 commands, Oriented to person, place, time, situation. Musculoskeletal: uses cane to ambulate. Historical: - Allergies: 18:28 No Known Allergies; ss7 - Home Meds: 18:28 amlodipine 5 mg tab once daily [Active]; aspirin 81 mg oral tab daily [Active]; ss7 cilostazol 100 mg Oral tab 1 tab 2 times per day [Active]; Combigan ophthalmic [Active]; Acetazolamide Oral [Active]; - PMHx: 18:28 Glaucoma; Hypertension; ss7 - Immunization history:: Pneumococcal vaccine is not up to date, Flu vaccine is not up to date. - Social history:: Smoking status: Patient denies any tobacco usage or history of. Patient/guardian denies using tobacco, but has a distant history of tobacco abuse. Screenin:52 Abuse screen: Denies threats or abuse. Nutritional screening: No deficits noted. vg1 Tuberculosis screening: No symptoms or risk factors identified. Fall Risk No fall in past 12 months (0 pts). No secondary diagnosis (0 pts). IV access (20 points). Ambulatory Aid- Crutches/Cane/Walker (15 pts). Gait- Weak (10 pts.). Mental Status- Oriented to own ability (0 pts). Total Lal Fall Scale indicates High Risk Score (45 or more points). Fall prevention measures have been instituted. Side Rails Up X 2 Placed Close to Nursing Station Family Present and informed to notify staff if the need to leave the bedside. Assessment: 18:52 General: Appears in no apparent distress. comfortable, Behavior is calm, cooperative. vg1 Pain: Complains of pain in back Pain currently is 9 out of 10 on a pain scale. Pain began today. Neuro: Level of Consciousness is awake, alert, obeys commands, Oriented to person, place, time, situation, House Superintendent are pt has hx of left sided weakness due to past surgery. Moves all extremities. Gait is unsteady, Speech is normal, Facial symmetry appears normal, Reports dizziness, since 1600 today Denies difficulty swallowing, numbness headache. Cardiovascular: Patient's skin is warm and dry. Respiratory: Airway is patent Respiratory effort is even, unlabored, Breath sounds are clear bilaterally. GI: Patient currently denies nausea, vomiting. : No signs and/or symptoms were reported regarding the genitourinary system. EENT: No signs and/or symptoms were reported regarding the EENT system. Derm: Skin is intact, is healthy with good turgor. Musculoskeletal: Circulation, motion, and sensation intact. Range of motion: intact in all extremities. 19:00 General: Appears in no apparent distress. comfortable. 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 Gait is Speech is normal, Facial symmetry appears normal, Pupils are PERRLA, Intact no longer having s/s arrived w/, NIH 0. Cardiovascular: Heart tones S1 S2 S4 Capillary refill < 3 seconds in bilateral fingers toes Clubbing of nail beds is absent Patient's skin is warm and dry. Pulses are 3+ in right radial artery, right dorsalis pedis artery, left radial artery and left dorsalis pedis artery Rhythm is regular. Respiratory: Airway is patent Trachea midline Respiratory effort is even, unlabored, Respiratory pattern is regular, symmetrical, Breath sounds are clear. GI: Abdomen is flat, non-distended, Bowel sounds Patient currently denies nausea, vomiting. : No signs and/or symptoms were reported regarding the genitourinary system. Derm: Skin is intact, is healthy with good turgor. Musculoskeletal: Circulation, motion, and sensation intact. Capillary refill < 3 seconds, in bilateral fingers. toes. Range of motion: intact in all extremities, weakness L side. 20:00 Reassessment: No changes from previously documented assessment. Patient and/or family ll3 updated on plan of care and expected duration. Pain level reassessed. Patient is alert, oriented x 3, equal unlabored respirations, skin warm/dry/pink. Dysphagia passed. 21:00 Reassessment: No changes from previously documented assessment. Patient and/or family mk updated on plan of care and expected duration. Pain level reassessed. Patient is alert, oriented x 3, equal unlabored respirations, skin warm/dry/pink. 22:00 Reassessment: No changes from previously documented assessment. Patient and/or family mk updated on plan of care and expected duration. Pain level reassessed. Patient is alert, oriented x 3, equal unlabored respirations, skin warm/dry/pink. 23:00 Reassessment: No changes from previously documented assessment. Patient and/or family mk updated on plan of care and expected duration. Pain level reassessed. Patient is alert, oriented x 3, equal unlabored respirations, skin warm/dry/pink. 06/09 00:00 Reassessment: No changes from previously documented assessment. Patient and/or family mk updated on plan of care and expected duration. Pain level reassessed. Patient is alert, oriented x 3, equal unlabored respirations, skin warm/dry/pink. 01:00 Reassessment: No changes from previously documented assessment. Patient and/or family mk updated on plan of care and expected duration. Pain level reassessed. Patient is alert, oriented x 3, equal unlabored respirations, skin warm/dry/pink. 03:00 Reassessment: No changes from previously documented assessment. Patient and/or family mk updated on plan of care and expected duration. Pain level reassessed. Patient is alert, oriented x 3, equal unlabored respirations, skin warm/dry/pink. 04:00 Reassessment: No changes from previously documented assessment. Patient and/or family mk updated on plan of care and expected duration. Pain level reassessed. Patient is alert, oriented x 3, equal unlabored respirations, skin warm/dry/pink. 05:00 Reassessment: No changes from previously documented assessment. Patient and/or family mk updated on plan of care and expected duration. Pain level reassessed. Patient is alert, oriented x 3, equal unlabored respirations, skin warm/dry/pink. 06:00 Reassessment: No changes from previously documented assessment. Patient and/or family mk updated on plan of care and expected duration. Pain level reassessed. Patient is alert, oriented x 3, equal unlabored respirations, skin warm/dry/pink. Vital Signs: 06/08 18:24 BP 146 / 80; Pulse 87; Resp 16; Temp 97.8(TE); Weight 59.87 kg; Height 6 ft. 1 in. ss7 (185.42 cm); 18:50 BP 146 / 90; Pulse 92; Resp 17; Pulse Ox 98% ; vg1 21:00 BP 145 / 81; Pulse 76; Resp 18; Pulse Ox 98% on R/A; mk 23:40 BP 140 / 72; Pulse 69; Resp 18; Pulse Ox 98% on R/A; mk 06/09 01:00 BP 158 / 73; Pulse 69; Resp 18; Pulse Ox 98% on R/A; mk 03:00 BP 154 / 72; Pulse 68; Resp 18; Pulse Ox 99% on R/A; mk 05:00 BP 131 / 82; Pulse 71; Resp 18; Pulse Ox 98% on R/A; mk 06/08 18:24 Body Mass Index 17.42 (59.87 kg, 185.42 cm) ss7 NIH Stroke Scale Scores: 06/08 18:51 NIHSS Score: 0 cp ED Course: 17:41 Patient arrived in ED. mr 18:27 Triage completed. 7 18:43 CT Stroke Brain w/o Contrast In Process Unspecified. EDMS 18:50 Santos Calderon PA is PHCP. 18:50 Hong Lopez MD is Attending Physician. cp 18:52 Willa Mendoza, RN is Primary Nurse. vg1 18:52 Patient has correct armband on for positive identification. Placed in gown. Bed in low vg1 position. Call light in reach. Side rails up X2. Adult w/ patient. monitor car operator on. Pulse ox on. NIBP on. 18:52 Initial lab(s) drawn, by ED staff, sent to lab. Inserted saline lock: 20 gauge in left vg1 antecubital area, using aseptic technique. ,using aseptic technique. completed by ED staff Blood collected. 18:55 Arm band placed on. vg1 19:18 XRAY Chest (1 view) In Process Unspecified. EDMS 19:50 Casey Calle MD is Hospitalizing Provider. 21:00 Patient admitted, IV remains in place. 23:51 Urine Microscopic Only Sent. 06/09 02:26 Attending Physician role handed off by Hong Lopez MD asya 02:26 Santos Reyes MD is Attending Physician. [facility] 07:12 No provider procedures requiring assistance completed. Administered Medications: 06/08 21:08 Drug: NS 0.9% 750 ml Route: IV; Rate: 75 ml/hr; Site: left antecubital; mk 21:08 Drug: NS 0.9% 250 ml Route: IV; Rate: bolus; Site: left antecubital; mk 21:08 Drug: Aspirin Chewable Tablet 324 mg Route: PO; 21:08 Drug: foLIC Acid 1 mg Route: PO; Outcome: 19:51 Decision to Hospitalize by Provider. 06/09 09:43 Patient left the ED. NIH Stroke Scale - NIH Stroke Score Date: 06/08/2021 Time: 18:51 Total Score = 0 1a. Level of Consciousness (LOC) - 0(Alert) 1b. Level of Consciousness (LOC) (Month \T\ Age) - 0(Both) 1c. LOC Commands (Open \T\ Closes Eyes/Superintendent Refuse Disposal) - 0(Both) 2. Best Gaze (Lateral Gaze Paresis) - 0(Normal) 3. Visual Field Loss - 0(No visual loss) 4. Facial Palsy - 0(Normal) 5a. Left Arm: Motor (10-second hold) - 0(No drift) 5b. Right Arm: Motor (10-second hold) - 0(No drift) 6a. Left Leg: Motor (5-second hold - always test supine) - 0(No drift) 6b. Right Leg: Motor (5-second hold - always test supine) - 0(No drift) 7. Limb Ataxia (finger/nose \T\ heel/salvador - test with eyes open) - 0(Absent) 8. Sensory Loss (pinprick arms/legs/face) - 0(Normal) 9. Best Language: Aphasia (description/naming/reading) - 0(No aphasia) 10. Dysarthria (speech clarity - read or repeat words) - 0(Normal) 11. Extinction and Inattention (visual/tactile/auditory/spatial/personal) - 0(No abnormality) Initials: cp Signatures: Dispatcher [employer] Santos Ramirez MD MD cha Rivera, Carolyne mr Harley, Cyndy, RN RN ss Santos Calderon PA PA cp Willa Mendoza, RN RN vg1 Jennifer Steel, RN RN ll3 Chayito Enamorado, RN RN Liza Horn, RN RN ss7
--- NOTE | 2021-06-08 19:52 | EDPHYS ---
Physician Documentation [facility] Name: Александр Henderson Age: 71 yrs Sex: Male : 1950 Arrival Date: 06/08/2021 Time: 17:41 Bed 6 Private MD: NORMA Physician Santos Reyes HPI: 06/08 18:45 This 71 yrs old Black Male presents to ER via Ambulatory with complaints of Back Pain, cp Leg Pain, Confusion, weakness. 18:45 The patient's problem is reported as altered mental status, confused, weakness. cp 18:45 Onset: The symptoms/episode began/occurred suddenly, about 1600 today after returning cp home from [facility] in [facility]. Duration: This was a single incident, now resolved. Context: the episode(s) was witnessed, by family, , occurred at home, reports patient c/o chills and suddenly seemed confused and gait seemed off balance. reports patient was trying to put shirt on as pants and wasn't making sense when communicating with her. reports this occurred at approximately 1600 today. Currently patient is at baseline mentally and chronic weakness to left arm and leg is his normal. Historical: - Allergies: 18:28 No Known Allergies; ss7 - Home Meds: 18:28 amlodipine 5 mg tab once daily [Active]; aspirin 81 mg oral tab daily [Active]; ss7 cilostazol 100 mg Oral tab 1 tab 2 times per day [Active]; Combigan ophthalmic [Active]; Acetazolamide Oral [Active]; - PMHx: 18:28 Glaucoma; Hypertension; ss7 - Immunization history:: Pneumococcal vaccine is not up to date, Flu vaccine is not up to date. - Social history:: Smoking status: Patient denies any tobacco usage or history of. Patient/guardian denies using tobacco, but has a distant history of tobacco abuse. ROS: 18:50 Constitutional: Positive for chills, Negative for fever, poor PO intake. cp 18:50 Eyes: Negative for injury, pain, redness, and discharge. cp 18:50 ENT: Negative for drainage from ear(s), ear pain, sore throat, difficulty swallowing, difficulty handling secretions. 18:50 Cardiovascular: Negative for chest pain, edema, palpitations. 18:50 Respiratory: Negative for cough, shortness of breath, wheezing. 18:50 Abdomen/GI: Negative for abdominal pain, nausea, vomiting, and diarrhea. 18:50 Back: Positive for chronic pain. 18:50 Neuro: Positive for altered mental status, gait disturbance, Negative for headache, seizure activity, syncope, weakness. 18:50 All other systems are negative. Exam: 18:55 Constitutional: The patient appears in no acute distress, alert, awake, cp non-diaphoretic, non-toxic, well developed, well nourished. 18:55 Head/Face: Normocephalic, atraumatic. cp 18:55 Eyes: Periorbital structures: appear normal, Pupils: equal, round, and reactive to light and accomodation, Extraocular movements: intact throughout, Conjunctiva: normal, no exudate, no injection, Sclera: no appreciated abnormality, Lids and lashes: appear normal, bilaterally. 18:55 ENT: External ear(s): are unremarkable, Nose: is normal, Mouth: Lips: moist, Oral mucosa: moist, Posterior pharynx: Airway: no evidence of obstruction, patent. 18:55 Neck: ROM/movement: is normal, is supple, without pain, no range of motions limitations, no nuchal rigidity. 18:55 Chest/axilla: Inspection: normal. 18:55 Cardiovascular: Rate: normal, Rhythm: regular, Edema: is not appreciated, JVD: is not appreciated. 18:55 Respiratory: the patient does not display signs of respiratory distress, Respirations: normal, no use of accessory muscles, no retractions, labored breathing, is not present, Breath sounds: are clear throughout, no decreased breath sounds, no stridor, no wheezing. 18:55 Abdomen/GI: Inspection: abdomen appears normal, Palpation: abdomen is soft and non-tender, in all quadrants. 18:55 Back: pain, that is mild, ROM is normal. 18:55 Neuro: Orientation: to person, place \T\ time. Mentation: is normal, Motor: no acute changes, history of chronic weakness of left arm and left leg, Sensation: is normal, Gait: is unsteady. 19:00 ECG was reviewed by the Attending Physician. cp 19:15 Radiologist reports: no acute findings cp Vital Signs: 18:24 BP 146 / 80; Pulse 87; Resp 16; Temp 97.8(TE); Weight 59.87 kg; Height 6 ft. 1 in. ss7 (185.42 cm); 18:50 BP 146 / 90; Pulse 92; Resp 17; Pulse Ox 98% ; vg1 21:00 BP 145 / 81; Pulse 76; Resp 18; Pulse Ox 98% on R/A; mk 23:40 BP 140 / 72; Pulse 69; Resp 18; Pulse Ox 98% on R/A; mk 06/09 01:00 BP 158 / 73; Pulse 69; Resp 18; Pulse Ox 98% on R/A; mk 03:00 BP 154 / 72; Pulse 68; Resp 18; Pulse Ox 99% on R/A; mk 05:00 BP 131 / 82; Pulse 71; Resp 18; Pulse Ox 98% on R/A; mk 06/08 18:24 Body Mass Index 17.42 (59.87 kg, 185.42 cm) ss7 NIH Stroke Scale Scores: 06/08 18:51 NIHSS Score: 0 cp MDM: 18:51 Patient medically screened. cp 19:15 ED course: patient is not a candidate for tpa as patient mental status is at baseline cp and no current change in chronic weakness to left arm and left leg. 19:15 Differential diagnosis: CVA, TIA, metabolic disorder, drug effects, sepsis. cp 19:55 Data reviewed: vital signs, nurses notes, lab test result(s), EKG, radiologic studies, cp CT scan, plain films. 19:55 Test interpretation: by ED physician or midlevel provider: ECG, plain radiologic cp studies. Counseling: I had a detailed discussion with the patient and/or guardian regarding: the historical points, exam findings, and any diagnostic results supporting the discharge/admit diagnosis, lab results, radiology results, the need for further work-up and treatment in the hospital. 19:55 Physician consultation: Maximo Arrington was called at 19:45, was contacted at 19:45, regarding admission, to the telemetry unit. patient's condition. 06/08 18:51 Order name: Basic Metabolic Panel; Complete Time: 19:34 cp 06/08 19:34 Interpretation: Normal except: CL 115; CO2 19; GLUC 130; GFR 77. cp 06/08 18:51 Order name: CBC with Diff; Complete Time: 19:09 cp 06/08 19:35 Interpretation: Normal except: WBC 15.20; PLT 132; CYDNEY% 82.7; LYM% 8.6; NEUT A 12.6. cp 06/08 18:51 Order name: LFT's; Complete Time: 19:34 cp 06/08 19:35 Interpretation: Normal except: BILIT 1.2; BILID 0.4; GLOB 4.6; A/G 0.8. cp 06/08 18:51 Order name: Magnesium; Complete Time: 19:34 cp 06/08 18:51 Order name: NT PRO-BNP; Complete Time: 19:34 cp 06/08 18:51 Order name: PT-INR; Complete Time: 19:09 cp 06/08 18:51 Order name: Troponin HS; Complete Time: 19:34 cp 06/08 19:02 Order name: Glucose, Ancillary Testing; Complete Time: 19:09 [facility] 06/08 19:10 Order name: Urine Microscopic Only 06/08 19:11 Order name: Urine Microscopic Only [facility] 06/08 23:05 Order name: Urine Dipstick-Ancillary [facility] 06/09 00:30 Order name: SARS-COV-2 RT PCR [facility] 06/09 03:56 Order name: CBC with Automated Diff [facility] 06/08 18:36 Order name: CT Stroke Brain w/o Contrast; Complete Time: 19:09 06/08 19:10 Interpretation: Report reviewed. 06/08 18:51 Order name: XRAY Chest (1 view); Complete Time: 19:34 cp 06/08 18:51 Order name: EKG; Complete Time: 18:51 cp 06/08 18:51 Order name: Cardiac monitoring; Complete Time: 18:56 cp 06/09 04:15 Order name: Comprehensive Metabolic Panel [facility] 06/09 04:15 Order name: Lipid Profile [facility] 06/09 04:15 Order name: T4 Free [facility] 06/09 04:15 Order name: Thyroid Stimulating Hormone [facility] 06/09 04:20 Order name: Procalcitonin [facility] 06/09 08:40 Order name: MRI [facility] 06/09 08:46 Order name: MRI [facility] 06/09 08:47 Order name: MRI [facility] 06/08 18:51 Order name: EKG - Nurse/Tech; Complete Time: 18:56 cp 06/08 18:51 Order name: IV Saline Lock; Complete Time: 18:56 cp 06/08 18:51 Order name: Labs collected and sent; Complete Time: 18:56 cp 06/08 18:51 Order name: O2 Per Protocol; Complete Time: 18:56 cp 06/08 18:51 Order name: O2 Sat Monitoring; Complete Time: 18:56 cp 06/08 19:10 Order name: Urine Dipstick-Ancillary (obtain specimen); Complete Time: 23:51 cp EC:00 Rate is 83 beats/min. Rhythm is regular. FL interval is normal. QRS interval is normal. cp QT interval is normal. Interpreted by me. Reviewed by me. Administered Medications: 21:08 Drug: NS 0.9% 750 ml Route: IV; Rate: 75 ml/hr; Site: left antecubital; mk 21:08 Drug: NS 0.9% 250 ml Route: IV; Rate: bolus; Site: left antecubital; mk 21:08 Drug: Aspirin Chewable Tablet 324 mg Route: PO; mk 21:08 Drug: foLIC Acid 1 mg Route: PO; mk Disposition: 06/10 00:11 Co-signature as Attending Physician, Hong Lopez MD I agree with the assessment and kdr plan of care. Disposition Summary: 06/08/21 19:51 Hospitalization Ordered Hospitalization Status: Observation cp Provider: Casey Calle cp Condition: Stable cp Problem: new cp Symptoms: are resolved cp Bed/Room Type: Standard cp Location: Telemetry/MedSurg (observation)(06/09/21 08:23) eb Room Assignment: [facility](06/09/21 08:23) eb Diagnosis - Transient alteration of awareness cp Forms: - Medication Reconciliation Form cp - SBAR form cp NIH Stroke Scale - NIH Stroke Score Date: 06/08/2021 Time: 18:51 Total Score = 0 1a. Level of Consciousness (LOC) - 0(Alert) 1b. Level of Consciousness (LOC) (Month \T\ Age) - 0(Both) 1c. LOC Commands (Open \T\ Closes Eyes/Assembler Clip On Sunglasses) - 0(Both) 2. Best Gaze (Lateral Gaze Paresis) - 0(Normal) 3. Visual Field Loss - 0(No visual loss) 4. Facial Palsy - 0(Normal) 5a. Left Arm: Motor (10-second hold) - 0(No drift) 5b. Right Arm: Motor (10-second hold) - 0(No drift) 6a. Left Leg: Motor (5-second hold - always test supine) - 0(No drift) 6b. Right Leg: Motor (5-second hold - always test supine) - 0(No drift) 7. Limb Ataxia (finger/nose \T\ heel/salvador - test with eyes open) - 0(Absent) 8. Sensory Loss (pinprick arms/legs/face) - 0(Normal) 9. Best Language: Aphasia (description/naming/reading) - 0(No aphasia) 10. Dysarthria (speech clarity - read or repeat words) - 0(Normal) 11. Extinction and Inattention (visual/tactile/auditory/spatial/personal) - 0(No abnormality) Initials: cp Signatures: Dispatcher [employer] EDMS Hong Lopez MD MD [facility] Maximo Arrington, RESIDENTIAL SUBCONTRACTOR-C RESIDENTIAL SUBCONTRACTOR-Cla1 Santos Calderon PA PA cp Garcia, Cindy, Zandra Boyce RN, Madeline RN Liza Valente RN RN ss7 Corrections: (The following items were deleted from the chart) 06/09 00:37 06/08 19:51 Telemetry/MedSurg (observation) cp cg 06/09 00:37 06/08 19:51 cp cg 06/09 08:23 00:37 [facility] ER HOLD cg eb 08:23 00:37 ERHOLD- cg eb
--- NOTE | 2021-06-08 20:27 | P.HP ---
Certification for Inpatient Patient admitted to: Observation With expected LOS: <2 Midnights Patient will require the following post-hospital care: None Practitioner: I am a practitioner with admitting privileges, knowledge of patient current condition, hospital course, and medical plan of care. Services: Services provided to patient in accordance with Admission requirements found in Title 42 Section 412.3 of the Code of Federal Regulations Patient History Date of Service: 06/08/21 Primary Care Provider: Dr. Peters Reason for admission: AMS History of Present Illness: 71-year-old -[place] male with history of hypertension, glaucoma, PVD presents emergency department for altered mental status. reports that they just got home from a drive with patient does not began acting confused, attempted to put his shirt on as a pair of pants reports that the speech was clear but inappropriate he was not making any sense. She did not notice any unilateral deficits slurred speech etc. Patient was brought to the emergency department immediately upon arrival to the emergency department patient was back at his baseline mental status alert, oriented x4. Without any focal neurological deficits. Patient was evaluated in the emergency department his labs were significant for white blood cell count of 15.2 platelets 132 chloride 115 CO2 19 GFR 77 glucose 130 T bili 1.2D bili 0.[address] head brain without contrast negative for acute findings chest x-ray unremarkable. Suspected TIA, ED provider wishes to admit for further evaluation and management. - Past Medical/Surgical History -: Hypertension -: PVD -: Glaucoma -: Back surgery x2 -: Bypass right lower extremity Psychosocial/ Personal History: Patient lives at home with his - Family History Sister -: Cancer Brother -: Cancer - Social History Smoking Status: Never smoker Alcohol use: Yes CD- Drugs: No Caffeine use: Yes Place of Residence: Home Review of Systems 10-point ROS is otherwise unremarkable Neurological: As per HPI Physical Examination - Physical Exam General: Alert, In no apparent distress, Oriented x3 HEENT: Atraumatic, PERRLA, Mucous membr. moist/pink, EOMI, Sclerae nonicteric Neck: Supple, 2+ carotid pulse no bruit, No LAD, Without JVD or thyroid abnormality Respiratory: Clear to auscultation bilaterally, Normal air movement Cardiovascular: Regular rate/rhythm, Normal S1 S2 Gastrointestinal: Normal bowel sounds, No tenderness Musculoskeletal: No tenderness Integumentary: No rashes Neurological: Normal gait, Normal speech, Normal tone, Normal affect, Abnormal strength (4 out of 5 strength left upper and lower extremity) - Studies Laboratory Data (last 24 hrs) 06/08/21 18:51: PT 14.6 H, INR 1.27 06/08/21 18:51: WBC 15.20 H, Hgb 14.7, Hct 45.4, Plt Count 132 L 06/08/21 18:50: Sodium 140, Potassium 3.6, BUN 17, Creatinine 1.13, Glucose 130 H, Magnesium 2.0, Total Bilirubin 1.2 H, AST 17, ALT 31, Alkaline Phosphatase 78 Assessment and Plan - Plan Assessment: AMSresolved suspect TIA Leukocytosis Hypertension PVD Plan: AMSresolved suspect TIA: CT negative, MRI stroke protocol ordered. Aspirin, statin, folic acid. Could also be delirium related to possible infection given leukocytosis, will obtain procalcitonin level, urinalysis pending chest x-ray unremarkable abdomen benign. Leukocytosis: Chest x-ray remarkable urinalysis pending abdomen benign. Will hydrate overnight recheck in the morning obtain procalcitonin level. Hypertension: Continue amlodipine PVD: Continue home medication. DVT PPX: Lovenox Code status: Full Discharge Plan: Home Plan to discharge in: 24 Hours - Advance Directives Does patient have a Living Will: No Does patient have a Durable POA for Healthcare: No - Code Status/Comfort Care Code Status Assessed: Yes (Full code) Critical Care: No Time Spent Managing Pts Care (In Minutes): 55
[2021-06-08] MEDS ORDERED: ASPIRIN 81 MG CHEWABLE TABLET ONE (20:58)
[2021-06-08] MEDS ORDERED: FOLIC ACID 1 MG TABLET ONE (20:58)
[2021-06-08] MEDS ORDERED: NA CHLORIDE 0.9% 1,000 ML ONE (20:59)
[2021-06-08 23:04] LABS: Urine Blood 2+ (Negative); Urine Glucose Negative (Negative); Urine Protein Trace (Negative); Urine Specific Gravity >=1.030 (1.005-1.030); Urine pH 5.5 (5.0-7.0)
[2021-06-08 23:31] LABS: Urine Bacteria LOADED /HPF (NONE SEEN); Urine RBC <5 /HPF (NONE SEEN)
[2021-06-09] MEDS: ATORVASTATIN 40 MG TAB PO SCH ×2 (02:39→20:25)
[2021-06-09] MEDS ORDERED: NA CHLORIDE 0.9% 1,000 ML IV SCH (02:39)
[2021-06-09] MEDS ORDERED: ONDANSETRON 4 MG/2 ML VIAL IV PRN (02:39)
[2021-06-09 03:53] LABS: Absolute Lymphocytes (CBC) 1.1 K/uL (0.7-4.9); Hematocrit 42.1 % (39.6-49.0); Lymphocytes % 6.9 % (15.3-44.8); MPV 9.2 fL (7.6-11.3); RBC Red Blood Cell Count 4.72 M/uL (4.33-5.43)
[2021-06-09 04:14] LABS: Bilirubin Total 2.1 mg/dL (0.2-1.0); Protein, Total 7.2 g/dL (6.4-8.2); Thyroid Stimulating Hormone 0.49 uIU/mL (0.360-3.740)
[2021-06-09 04:15] LABS: Potassium 3.4 mmol/L (3.5-5.1)
[2021-06-09] MEDS ORDERED: ATORVASTATIN 20 MG TAB ONE (05:15)
[2021-06-09] MEDS ORDERED: NA CHLORIDE 0.9% 1,000 ML ONE (07:41)
--- NOTE | 2021-06-09 08:39 | RAD REPORT ---
EXAM DESCRIPTION: MRI - MRA Head Wo Cont - 06/09/2021 8:29 am CLINICAL HISTORY: AMS-poss. TIA CVA COMPARISON: No comparisons FINDINGS: 3D noncontrast [id number] MR angiography of the [place] was performed. No aneurysm, flow-limiting stenosis or vascular malformation is seen. Forward flow seen in codominant vertebral arteries. The visualized dural venous sinuses appear patent. IMPRESSION: No significant flow abnormality of the [place] is identified.
--- NOTE | 2021-06-09 08:45 | RAD REPORT ---
EXAM DESCRIPTION: MRI - MRA Neck W/Wo Cont - 06/09/2021 8:29 am CLINICAL HISTORY: poss TIA COMPARISON: No comparisons FINDINGS: Contrast enhance 2D [id number] MR angiography of the neck vessels was performed. Three -vessel arch. Widely patent bilateral internal, external, and common carotid and vertebral arteries. The vertebral arteries are codominant. IMPRESSION: No flow limiting stenosis is present within the neck.
--- NOTE | 2021-06-09 08:47 | RAD REPORT ---
EXAM DESCRIPTION: MRI - Brain W/Wo Cont - 06/09/2021 8:29 am CLINICAL HISTORY: poss TIA COMPARISON: MRA Head Wo Cont dated 06/09/2021 TECHNIQUE: Sagittal T1-weighted images were obtained along with PD/heavily T2-weighted and T2-FLAIR images. Axial DWI and ADC mapping sequences were also obtained along with coronal heavily T2-weighted images were obtained. Post contrast enhanced images were obtained. FINDINGS: No intracranial hemorrhage, mass or acute infarction. No edema or shift of midline structu res. No extra-axial fluid collections. Signal voids are seen as a normal finding in the major intracr anial vessels. No significant white matter disease. No abnormal enhancement. No mastoid effusion.Paranasal sinuses are clear. IMPRESSION: No acute intracranial abnormality. No abnormal enhancement. Mild chronic small vessel is chemic changes.
[2021-06-09] MEDS: ASPIRIN EC 81 MG TAB PO SCH (09:00)
[2021-06-09] MEDS: ENOXAPARIN 40 MG/0.4 ML SQ SCH (09:00)
[2021-06-09] MEDS: AMLODIPINE 5 MG TAB PO SCH (09:00)
[2021-06-09] MEDS: FOLIC ACID 1 MG TABLET PO SCH (09:00)
[2021-06-09] MEDS ORDERED: FOLIC ACID 1 MG TABLET ONE (09:12)
[2021-06-09] MEDS ORDERED: ENOXAPARIN 40 MG/0.4 ML SQ ONE (09:13)
[2021-06-09] MEDS ORDERED: ASPIRIN EC 81 MG TAB PO ONE (09:13)
[2021-06-09] MEDS ORDERED: AMLODIPINE 5 MG TAB ONE (09:20)
[2021-06-09 10:02] VITALS: O2SAT 98
[2021-06-09] MEDS ORDERED: POTASSIUM 25 MEQ EFFERV TAB PO ONE (10:25)
--- NOTE | 2021-06-09 11:38 | P.PN ---
Subjective Date of Service: 06/09/21 Primary Care Provider: Dr. Peters Chief Complaint: AMS Subjective: No new changes, Tolerating diet Physical Examination - Vital Signs Temperature: 98.6 F Blood Pressure: 153/67 Pulse: 67 Respirations: 18 Pulse Ox (%): 98 - Studies Laboratory Data (last 24 hrs) 06/08/21 18:51: PT 14.6 H, INR 1.27 06/08/21 18:51: WBC 15.20 H, Hgb 14.7, Hct 45.4, Plt Count 132 L 06/08/21 18:50: Sodium 140, Potassium 3.6, BUN 17, Creatinine 1.13, Glucose 130 H, Magnesium 2.0, Total Bilirubin 1.2 H, AST 17, ALT 31, Alkaline Phosphatase 78 Assessment And Plan Discharge Plan: Home Physician Review: Patient Assessed, Agree with Above Assessment and Plan Physician Review Additional Text: 06/09/21 11:35 - Physical Exam General: Alert, In no apparent distress, Oriented x3 HEENT: Atraumatic, PERRLA, Mucous membr. moist/pink, EOMI, Sclerae nonicteric Neck: Supple, 2+ carotid pulse no bruit, No LAD, Without JVD or thyroid abnormality Respiratory: Clear to auscultation bilaterally, Normal air movement Cardiovascular: Regular rate/rhythm, Normal S1 S2 Gastrointestinal: Normal bowel sounds, No tenderness Musculoskeletal: No tenderness Integumentary: No rashes Neurological: Normal gait, Normal speech, Normal tone, Normal affect, Abnormal strength (4 out of 5 strength left upper and lower extremity) Assessment and Plan - Plan Assessment: Acute encephalopathylikely due to infectious etiology, rule out TIA Urinary tract infection Acute COVID infection Leukocytosis Hypertension PVD Hypokalemia Plan: Acute encephalopathyresolved, start empiric antibiotics with Rocephin Follow pending urine culture May also be due to acute COVID infection Continue to replete electrolytesmonitor potassium Obtain renal sonogram to rule out renal calculi or obstructive hydronephrosis since mild acidosis Leukocytosis: Follow with start empirical antibiotics, normal procalcitonin Likely due to UTI Hypertension: Continue amlodipine PVD: Continue home medication. DVT PPX: Lovenox Code status: Full Discharge Plan: Home Plan to discharge in: 24 Hours
[2021-06-09] MEDS: CEFTRIAXONE 1,000 MG in NA CHLORIDE 0.9% 50 ML IVPB SCH (12:50)
--- NOTE | 2021-06-09 13:06 | EKG ---
Test Date: 2021-06-08 Test Time: 18:57:09 Ultrasonic [place]: TP MEASUREMENT RESULTS: Intervals: Rate: 83 GA: 166 QRSD: 78 QT: 362 QTc: 425 [place]: P: 81 GA: 166 QRS: 41 T: 53 INTERPRETIVE STATEMENTS: Sinus rhythm with occasional premature ventricular complexes Possible Left atrial enlargement Borderline ECG Compared to ECG 08/09/2020 12:18:41 Ventricular premature complex(es) now present Sinus bradycardia no longer present Electronically Signed On 06-09-21 13:03:00 CARDIOPULMONARY TECHNOLOGIST CHIEF by Colt Sotelo
--- NOTE | 2021-06-09 15:23 | RAD REPORT ---
EXAM DESCRIPTION: US - Renal Ultrasound-Complete - 06/09/2021 3:09 pm CLINICAL HISTORY: Abdominal pain/UTI COMPARISON: 2020 FINDINGS: The right kidney measures 13 cm with a normal echotexture. 3.7 centimeter cyst The left kidney measures cm with a normal echotexture. A 7 millimeter echogenic structure probably ca lculus. 1.5 centimeter cyst Hydronephrosis is not seen. No gross abnormality of bladder IMPRESSION: Nonobstructing left renal calculus Renal cysts
[2021-06-09] MEDS ORDERED: POTASSIUM CL SA 10 MEQ TAB PO ONE (20:21)
[2021-06-10 04:31] LABS: Potassium 3.8 mmol/L (3.5-5.1)
[2021-06-10] MEDS: FOLIC ACID 1 MG TABLET PO SCH (08:28)
[2021-06-10] MEDS: AMLODIPINE 5 MG TAB PO SCH (08:28)
[2021-06-10] MEDS: CEFTRIAXONE 1,000 MG in NA CHLORIDE 0.9% 50 ML IVPB SCH (08:29)
[2021-06-10] MEDS: ASPIRIN EC 81 MG TAB PO SCH (08:29)
[2021-06-10] MEDS: ENOXAPARIN 40 MG/0.4 ML SQ SCH (08:29)
--- NOTE | 2021-06-10 13:17 | P.PN ---
Subjective Date of Service: 06/10/21 Primary Care Provider: Dr. Peters Chief Complaint: AMS Subjective: No new changes, Tolerating diet, Improving Physical Examination - Vital Signs Temperature: 98.3 F Blood Pressure: 150/73 Pulse: 68 Respirations: 20 Pulse Ox (%): 96 - Studies Laboratory Data (last 24 hrs) 06/09/21 17:22: Potassium 3.6 Assessment And Plan Physician Review: Patient Assessed, Agree with Above Assessment and Plan Physician Review Additional Text: Imaging studiesMRI brain shows no acute abnormality, small microvascular ischemic changes. MRA head and neck shows no fluid or abnormality Renal sonogram7 mm left renal calculus nonobstructing - Physical Exam General: Alert, In no apparent distress, Oriented x3 HEENT: Atraumatic, PERRLA, Mucous membr. moist/pink, EOMI, Sclerae nonicteric Neck: Supple, 2+ carotid pulse no bruit, No LAD, Without JVD or thyroid abnormality Respiratory: Clear to auscultation bilaterally, Normal air movement Cardiovascular: Regular rate/rhythm, Normal S1 S2 Gastrointestinal: Normal bowel sounds, No tenderness Musculoskeletal: No tenderness Integumentary: No rashes Neurological: Normal gait, Normal speech, Normal tone, Normal affect, Abnormal strength (4 out of 5 strength left upper and lower extremity) Assessment and Plan Acute encephalopathy likely due to infectious etiology, Resolved Gram neg prosper UTI and Bacteremia - likely due to UTI Acute COVID infection-asymptomatic Leukocytosis Hypertension PVD Hypokalemia Left renal calculus Plan: Continue Rocephin, still having fevers, will add Levaquin Blood culture consistent with UA culture findings, Likely due to underlying BPH with LUTS although no hydronephrosis noted on imaging Continue to monitor leukocytosis Acute encephalopathyresolved See elevated blood pressure, will add Flomax to blood pressure control, continue amlodipine DVT PPX: Lovenox Code status: Full Discharge Plan: Home Plan to discharge in: If afebrile after 24 hours 06/10/21 13:09 06/10/21 13:12
[2021-06-10] MEDS: levoFLOXacin 750 MG TAB PO SCH (13:38)
[2021-06-10] MEDS ORDERED: TAMSULOSIN 0.4 MG SR CAP PO SCH (21:00)
[2021-06-10] MEDS: ATORVASTATIN 40 MG TAB PO SCH (21:12)
[2021-06-10 22:38] VITALS: BMI 17.2
[2021-06-11] MEDS: AMLODIPINE 5 MG TAB PO SCH (08:30)
[2021-06-11] MEDS: FOLIC ACID 1 MG TABLET PO SCH (08:30)
[2021-06-11] MEDS: levoFLOXacin 750 MG TAB PO SCH (08:30)
[2021-06-11] MEDS: CEFTRIAXONE 1,000 MG in NA CHLORIDE 0.9% 50 ML IVPB SCH (08:31)
[2021-06-11] MEDS: ASPIRIN EC 81 MG TAB PO SCH (08:31)
[2021-06-11] MEDS: ENOXAPARIN 40 MG/0.4 ML SQ SCH (08:31)
[2021-06-11] MEDS ORDERED: POTASSIUM CL SA 10 MEQ TAB PO ONE (09:00)
--- NOTE | 2021-06-11 10:31 | P.DS ---
Admission Date: 06/09/21 Discharge Date: 06/11/21 Primary Care Provider: Dr. Peters Disposition: ROUTINE DISCHARGE Discharge Condition: GOOD Reason for Admission: AMS Brief History of Present Illness: History of Present Illness: 71-year-old -Monegasque male with history of hypertension, glaucoma, PVD presents emergency department for altered mental status. reports that they just got home from a drive with patient does not began acting confused, attempted to put his shirt on as a pair of pants reports that the speech was clear but inappropriate he was not making any sense. She did not notice any unilateral deficits slurred speech etc. Patient was brought to the emergency department immediately upon arrival to the emergency department patient was back at his baseline mental status alert, oriented x4. Without any focal neurological deficits. Patient was evaluated in the emergency department his labs were significant for white blood cell count of 15.2 platelets 132 chloride 115 CO2 19 GFR 77 glucose 130 T bili 1.2D bili 0.[address] head brain without contrast negative for acute findings chest x-ray unremarkable. Suspected TIA, ED provider wishes to admit for further evaluation and management. Hospital Course: Hospital course 71-year-old AA male with history of hypertension on lisinopril 5 mg daily, PVD glaucoma admitted for transient episode of confusion. Patient was admission was noted with Covid positive status. He is vaccinated against Covid. He there was no evidence of Covid related symptoms. His blood pressure was initially elevated but with improved with amlodipine use. He had an CT scan which was negative for any acute infarct. He had an MRI of a head and neck that shows no flow abnormality. MRI of the brain shows mild white matter changes but no acute infarct. He was noted with intermittent fevers. Chest x-ray shows no acute infiltrate. He was noted with mild leukocytosis and his UA shows evidence of UTI. A blood culture was positive for similar organism as the urinary tract infection of gram-negative rods. Full culture yielded Enterobacter aerogenes which was relatively pansensitive. Patient was started on Levaquin. Ultrasound of the abdomen shows no urinary tract obstruction nonobstructing left renal calculus. Patient fever resolved. He will be discharged home on Levaquin for a 2 weeks course. His blood pressure regimen was switched from amlodipine to Flomax. He will continue on his home dose of lisinopril Physical Examination - Physical Exam General: Alert, In no apparent distress, Oriented x3 HEENT: Atraumatic, PERRLA, Mucous membr. moist/pink, EOMI, Sclerae nonicteric Neck: Supple, 2+ carotid pulse no bruit, No LAD, Without JVD or thyroid abnormality Respiratory: Clear to auscultation bilaterally, Normal air movement Cardiovascular: Regular rate/rhythm, Normal S1 S2 Gastrointestinal: Normal bowel sounds, No tenderness Musculoskeletal: No tenderness Integumentary: No rashes Neurological: Normal gait, Normal speech, Normal tone, Normal affect, Abnormal strength (4 out of 5 strength left upper and lower extremity) Vital Signs/Physical Exam: Temp Pulse Resp BP Pulse Ox 97.8 F 73 18 117/69 96 06/11/21 08:00 06/11/21 08:00 06/11/21 08:00 06/11/21 08:00 06/11/21 08:00 Laboratory Data at Discharge: WBC 16.30 K/uL (4.3-10.9) H 06/09/21 02:56 Hgb 13.4 g/dL (13.6-17.9) L 06/09/21 02:56 Hct 42.1 % (39.6-49.0) 06/09/21 02:56 Plt Count 113 K/uL (152-406) L 06/09/21 02:56 PT 14.6 SECONDS (9.5-12.5) H 06/08/21 18:51 INR 1.27 06/08/21 18:51 Sodium 138 mmol/L (136-145) 06/10/21 03:56 Potassium Cancelled 06/11/21 09:00 BUN 15 mg/dL (7-18) 06/10/21 03:56 Creatinine 0.99 mg/dL (0.55-1.3) 06/10/21 03:56 Glucose 128 mg/dL (74-106) H 06/10/21 03:56 Magnesium 2.0 mg/dL (1.8-2.4) 06/08/21 18:50 Total Bilirubin 2.1 mg/dL (0.2-1.0) H 06/09/21 02:56 AST 18 U/L (15-37) 06/09/21 02:56 ALT 26 U/L (12-78) 06/09/21 02:56 Alkaline Phosphatase 69 U/L (45-117) 06/09/21 02:56 Triglycerides 39 mg/dL (<150) 06/09/21 02:56 Cholesterol 128 mg/dL (<200) 06/09/21 02:56 HDL Cholesterol 46 mg/dL (40-60) 06/09/21 02:56 Cholesterol/HDL Ratio 2.78 06/09/21 02:56 Home Medications: Brimonidine Tartrate/Timolol [Combigan 0.2%-0.5% Eye Drops] 1 drop EACH EYE TID 06/09/21 Netarsudil Mesylate [Rhopressa] 1 drop RIGHT EYE BEDTIME 06/09/21 cilostazoL [Cilostazol] 100 mg PO BID 06/09/21 Aspirin 81 mg PO DAILY #30 tab.chew 06/11/21 Lisinopril [Zestril] 5 mg PO DAILY #30 tablet 06/11/21 Tamsulosin [Flomax*] 0.4 mg PO BEDTIME #30 cap 06/11/21 levoFLOXacin [Levaquin*] 750 mg PO DAILY #14 tab 06/11/21 New Medications: Aspirin 81 mg PO DAILY #30 tab.chew Tamsulosin [Flomax*] 0.4 mg PO BEDTIME #30 cap levoFLOXacin [Levaquin*] 750 mg PO DAILY #14 tab Lisinopril [Zestril] 5 mg PO DAILY #30 tablet Diet: Low sodium Activity: Ad miriam Followup: Remigio Peters MD [Primary Care Provider] - Time spent managing pt's care (in minutes): 35
[2021-06-11 11:29] LABS: Hematocrit 40.4 % (39.6-49.0); MPV 8.9 fL (7.6-11.3); RBC Red Blood Cell Count 4.56 M/uL (4.33-5.43)
[2021-06-11 12:23] LABS: Blood Morphology Comment NOT SEEN (NOT SEEN); Platelet Estimate DECR; White Blood Cell Scan OK (OK)
[2021-06-11 13:48] VITALS: BP 120/70; TEMP 97.2
== END 2021-06-11 15:57 | disposition home or self-care (01) | DRG 689 ==
LOC: ER 17:36 → ERHOLD 20:40 → 4TH 06-09 09:30 → OBSVTOIN 06-09 18:31
PROVIDERS: ADMIT Internal Medicine; ATTEND Internal Medicine
DX: N39.0 Urinary tract infection, site not specified (principal); U07.1 COVID-19; G93.40 Encephalopathy, unspecified; R78.81 Bacteremia; B96.89 Other specified bacterial agents as the cause of diseases classified elsewhere; I10 Essential (primary) hypertension; I73.9 Peripheral vascular disease, unspecified; E87.6 Hypokalemia; N20.0 Calculus of kidney
CPT/HCPCS: 36415; 70450; 70544; 70549; 70553; 71045; 76770; 80048; 80053; 80061; 80076; 81003; 81015; 82947; 83735; 83880; 84132; 84145; 84439; 84443; 84484; 85025; 85027; 85610; 87040; 87077; 87086; 87088; 87186; 87205; 93005; 99284; A9577; G0378; J1650; J7030; U0003

== ENCOUNTER 2024-02-20 10:43 | Emergency (ER) | payer OTHER ==
[2024-02-20 11:14] LABS: Absolute Eosinophils 0.3 K/uL (0-0.5); Absolute Lymphocytes (CBC) 1.3 K/uL (0.7-4.9); Absolute Monocytes 0.3 K/uL (0.1-1.3); Basophils % 1.4 % (0-1.3); Eosinophils % 8.8 % (0-4.4); Hematocrit 36.5 % (39.6-49.0); Hemoglobin 11.6 g/dL (13.6-17.9); Lymphocytes % 44.7 % (15.3-44.8); MCH 28.7 pg (27.0-35.0); MCHC 31.9 g/dL (32.0-36.0); MPV 9.6 fL (7.6-11.3); Monocytes % 10.3 % (3.3-12.3); Neutrophils % 34.8 % (41.7-73.7); Nucleated Red Blood Cells % 0.1 % (0-0); Platelets 88 thou/uL (152-406); RBC Red Blood Cell Count 4.06 M/uL (4.33-5.43); Red Cell Distribution Width 13.8 % (12.1-15.2)
[2024-02-20 11:33] LABS: Anion Gap 5.9 mEq/L (5.0-15.0); Potassium 3.9 mEq/L (3.5-5.1); Troponin High Sensitivity 8.6 pg/mL (<58.9)
--- NOTE | 2024-02-20 11:38 | EDPHYS ---
Physician Documentation [facility] [place] Name: Александр Henderson Age: 73 yrs Sex: Male : 1950 Arrival Date: 02/20/2024 Time: 10:43 Bed 19 Private MD: ED Physician Derek Knowles HPI: 02/19 11:09 This 73 yrs old Black Male presents to ER via EMS with complaints of High Blood ec2 Pressure. 10:51 Patient arrives today for evaluation of asymptomatic hypertension. Patient reports that ec2 he was undergoing physical therapy today and they noted his blood pressure to be elevated in the 170s. Patient reports no symptoms, denies any chest pain difficulty breathing, denies any headaches, lightheadedness. Patient is on antihypertensives, no recent medication changes, reports he baseline has elevated blood pressure, states that he is here because the physical therapist told him to come be evaluated.. Historical: - Allergies: 10:51 No Known Allergies; aa5 - Home Meds: 10:54 atorvastatin oral [Active]; clopidogrel oral [Active]; Eliquis oral [Active]; aa5 Lisinopril Oral [Active]; tamsulosin oral [Active]; - PMHx: 10:51 Glaucoma; Hypertension; GERD; Chronic Kidney Disease; Spinal Stenosis; aa5 10:54 CVA; aa5 - Immunization history:: Adult Immunizations unknown. - Infectious Disease History:: Denies. ROS: 10:51 Constitutional: as per hpi ec2 Exam: 10:51 Constitutional: GEN: NAD Head: atraumatic Eyes: EOMI Ears: External ears are ec2 normal. CV: regular rate LUNGS: no respiratory distress ABD: non-distended SKIN: no evidence of rashes MSK: no evidence of trauma Vital Signs: 10:49 BP 175 / 88; Pulse 48; Resp 18 S; Temp 97.5(TE); Pulse Ox 99% on R/A; aa5 12:06 BP 157 / 81; Pulse 44; Resp 16 S; Pulse Ox 97% on R/A; Pain 0/10; kc6 12:06 Pain Scale: Adult kc6 MDM: 10:50 Medical Screening Exam initiated ec2 10:51 Data reviewed: vital signs. ED course: Patient arrives today for evaluation of ec2 asymptomatic hypertension. Examination remarkable for well-appearing nontoxic dividual's otherwise in no acute distress with a reassuring examination. Will obtain lab work, EKG. Evaluating for endorgan dysfunction. Initial differential diagnosis included endorgan damage including ACS, renal dysfunction, intracranial pathology . 11:09 ED course: EKG independently reviewed and interpreted by me, shows normal sinus rhythm ec2 with heart rate of 42, no acute ST segment elevations, intervals are nonactionable.. 11:38 ED course: Metabolic profile, CBC, troponin are nonactionable. Patient ultimately with ec2 asymptomatic hypertension and needs to follow-up outpatient with his primary care doctor to further manage his blood pressure. Return precautions given. . 02/19 10:51 Order name: Basic Metabolic Panel; Complete Time: 11:38 ec2 02/19 10:51 Order name: CBC with Diff; Complete Time: 12:08 ec2 02/19 10:51 Order name: Troponin HS; Complete Time: 11:38 ec2 02/19 11:20 Order name: CBC Smear Scan; Complete Time: 12:08 EDMS 02/19 10:51 Order name: EKG; Complete Time: 10:51 ec2 02/19 10:51 Order name: Cardiac monitoring; Complete Time: 11:10 ec2 02/19 10:51 Order name: EKG - Nurse/Tech; Complete Time: 11:10 ec2 02/19 10:51 Order name: IV Saline Lock; Complete Time: 11:10 ec2 02/19 10:51 Order name: Labs collected and sent; Complete Time: 11:10 ec2 02/19 10:51 Order name: O2 Per Protocol; Complete Time: 11:10 ec2 02/19 10:51 Order name: O2 Sat Monitoring; Complete Time: 11:10 ec2 Administered Medications: No medications were administered Disposition Summary: 02/20/24 11:38 Discharge Ordered Condition: Stable ec2 Diagnosis - Essential (primary) hypertension ec2 Followup: ec2 - With: Private Physician - When: - Reason: Re-evaluation by your physician Discharge Instructions: - Discharge Summary Sheet ec2 - Managing Your Hypertension ec2 Forms: - Medication Reconciliation Form ec2 - Antibiotic Education ec2 - Prescription Opioid Use ec2 - Patient Portal Instructions ec2 - Leadership Thank You Letter ec2 Signatures: Dispatcher [employer] Anne Maxwell RN RN aa5 Knowles, Derek, MD MD ec2
--- NOTE | 2024-02-20 11:38 | ER ---
Nurse's Notes [facility] [place] Name: Александр Henderson Age: 73 yrs Sex: Male : 1950 Arrival Date: 02/20/2024 Time: 10:43 Bed 19 Private MD: Diagnosis: Essential (primary) hypertension Presentation: 02/19 10:49 Chief complaint: EMS states: Received 911 call from at home physical therapist for BP aa5 170/80, HR 40-50s. Pt denies any symptoms. Coronavirus screen: At this time, the client does not indicate any symptoms associated with coronavirus-19. Ebola Screen: Patient denies travel to an Ebola-affected area in the 21 days before illness onset. Initial Sepsis Screen: Does the patient meet any 2 criteria? No. Patient's initial sepsis screen is negative. Does the patient have a suspected source of infection? No. Patient's initial sepsis screen is negative. Risk Assessment: Do you want to hurt yourself or someone else? Patient reports no desire to harm self or others. Onset of symptoms was February 20, 2024. 10:49 Acuity: BILLIE 3 aa5 10:49 Method Of Arrival: [facility] aa5 Historical: - Allergies: 10:51 No Known Allergies; aa5 - Home Meds: 10:54 atorvastatin oral [Active]; clopidogrel oral [Active]; Eliquis oral [Active]; aa5 Lisinopril Oral [Active]; tamsulosin oral [Active]; - PMHx: 10:51 Glaucoma; Hypertension; GERD; Chronic Kidney Disease; Spinal Stenosis; aa5 10:54 CVA; aa5 - Immunization history:: Adult Immunizations unknown. - Infectious Disease History:: Denies. Screenin:11 [facility] ED Fall Risk Assessment (Adult) History of falling in the last 3 months, kc6 including since admission No falls in past 3 months (0 pts) Confusion or Disorientation No (0 pts) Intoxicated or Sedated No (0 pts) Impaired Gait No (0 pts) Mobility Assist Device Used No (0 pt) Altered Elimination No (0 pt) Score/Fall Risk Level 0 - 2 = Low Risk Oriented to surroundings. Abuse screen: Denies threats or abuse. Denies injuries from another. Nutritional screening: No deficits noted. Tuberculosis screening: No symptoms or risk factors identified. Assessment: 11:11 General: Appears in no apparent distress. comfortable, well groomed, well developed, kc6 Behavior is calm, cooperative, appropriate for age. Pain: Denies pain. Neuro: Level of Consciousness is awake, alert, obeys commands, Oriented to person, place, time, situation, Appropriate for age. Cardiovascular: Capillary refill < 3 seconds. Respiratory: Airway is patent Trachea midline Respiratory effort is even, unlabored, Respiratory pattern is regular, symmetrical. GI: No signs and/or symptoms were reported involving the gastrointestinal system. : No signs and/or symptoms were reported regarding the genitourinary system. EENT: No signs and/or symptoms were reported regarding the EENT system. Derm: No signs and/or symptoms reported regarding the dermatologic system. Skin is intact, is healthy with good turgor, Skin is pink, warm \T\ dry. Musculoskeletal: No signs and/or symptoms reported regarding the musculoskeletal system. Circulation, motion, and sensation intact. Capillary refill < 3 seconds, Range of motion: intact in all extremities. 11:40 Reassessment: d/c pending ride home. spoke with pts daughter. states she is on her way. kc6 . Vital Signs: 10:49 BP 175 / 88; Pulse 48; Resp 18 S; Temp 97.5(TE); Pulse Ox 99% on R/A; aa5 12:06 BP 157 / 81; Pulse 44; Resp 16 S; Pulse Ox 97% on R/A; Pain 0/10; kc6 12:06 Pain Scale: Adult kc ED Course: 10:49 Patient arrived in ED. aa5 10:49 Arm band placed on. aa5 10:50 Derke nKowles MD is Attending Physician. ec2 10:52 Triage completed. aa5 10:55 Patricia Matt, VU is Primary Nurse. kc6 11:10 Patient has correct armband on for positive identification. Placed in gown. Bed in low kc6 position. Call light in reach. Side rails up X2. engine monitor on. Pulse ox on. NIBP on. Door closed. Noise minimized. Lights dimmed. Warm blanket given. Pillow given. 11:10 Inserted saline lock: 20 gauge in right antecubital area, using aseptic technique. kc6 Blood collected. Flushed with 10 mL NS. Patient maintains SpO2 saturation greater than 95% on room air. 13:08 No provider procedures requiring assistance completed. IV discontinued, intact, kc6 bleeding controlled, No redness/swelling at site. Pressure dressing applied. Administered Medications: No medications were administered Medication: 13:08 VIS not applicable for this client. kc6 Outcome: 11:38 Discharge ordered by . ec2 13:08 Discharged to home via wheelchair, with family, kc6 13:08 Condition: good 13:08 Discharge instructions given to patient, family, Instructed on discharge instructions, follow up and referral plans. Demonstrated understanding of instructions, follow-up care, 13:08 Patient left the ED. kc6 Signatures: Anne Ho, RN RN aa5 Patricia Matt RN RN kc6 Derek Knowles MD MD ec2
[2024-02-20 11:52] LABS: Blood Morphology Comment NOTED (NOT SEEN); Burr Cells FEW; Platelet Estimate DECR; White Blood Cell Scan OK (OK)
[2024-02-20 13:54] VITALS: TEMP 97.5
[2024-02-20 13:55] VITALS: BP 157/81; O2SAT 97
--- NOTE | 2024-02-24 12:25 | EKG ---
Test Date: 2024-02-20 Test Time: 11:01:37 Hedis Nurse: PAZ MEASUREMENT RESULTS: Intervals: Rate: 42 NC: 180 QRSD: 82 QT: 460 QTc: 384 Perley: P: 75 NC: 180 QRS: 62 T: 41 INTERPRETIVE STATEMENTS: Marked sinus bradycardia Abnormal ECG Compared to ECG 01/16/2024 12:37:03 No significant changes Electronically Signed On 02-24-24 12:18:03 BARK [employer]TER by Power De La Rosa
== END 2024-02-20 13:08 | disposition home or self-care (01) ==
LOC: ER 10:43
DX: I10 Essential (primary) hypertension (principal); Z86.73 Personal history of transient ischemic attack (TIA), and cerebral infarction without residual deficits; Z79.01 Long term (current) use of anticoagulants
CPT/HCPCS: 36415; 80048; 84484; 85025; 93005; 99284

== ENCOUNTER 2024-03-20 14:37 | Emergency (ER) | payer OTHER ==
[2024-03-20 15:26] LABS: Absolute Basophils 0.1 K/uL (0-0.5); Absolute Eosinophils 0.4 K/uL (0-0.5); Absolute Lymphocytes (CBC) 1.6 K/uL (0.7-4.9); Absolute Monocytes 0.4 K/uL (0.1-1.3); Absolute Neutrophil 1.1 K/uL (1.8-8.0); Basophils % 2.4 % (0-1.3); Eosinophils % 10.3 % (0-4.4); Hematocrit 38.3 % (39.6-49.0); Hemoglobin 12.3 g/dL (13.6-17.9); Lymphocytes % 45.9 % (15.3-44.8); MCH 29.1 pg (27.0-35.0); MCHC 32.1 g/dL (32.0-36.0); MCV 90.5 fL (80-100); MPV 9.9 fL (7.6-11.3); Monocytes % 10.4 % (3.3-12.3); Nucleated Red Blood Cells % 0.1 % (0-0); Platelets 113 thou/uL (152-406); RBC Red Blood Cell Count 4.24 M/uL (4.33-5.43); Red Cell Distribution Width 14.2 % (12.1-15.2)
--- NOTE | 2024-03-20 15:27 | RAD REPORT ---
EXAMINATION: CT HEAD WITHOUT CONTRAST CLINICAL INDICATION: Male, 73 years old.DIZZINESS TECHNIQUE: Axial CT images from the skull base to the vertex without intravenous contrast. Coronal an d sagittal reformatted images were created from the data set. One or more of the following dose reduction techniques were used: Automated exposure control, adjustment of the mA and/or kV according to patient size, and/or iterative reconstruction. Unless otherwise specified, incidental findings do not require dedicated imaging follow-up. [id number]. COMPARISON: 06/08/2021 FINDINGS: INTRACRANIAL: No acute intracranial hemorrhage. No hydrocephalus. No mass effect or midline shift. Le ft temporal lobe encephalomalacia. Procedural changes at the right globe. Chronic small vessel ischemic changes. VASCULATURE: No visualized abnormalities in the arteries or dural venous sinuses. SCALP/SKULL: No significant soft tissue or osseous abnormalities. SINUSES: Ethmoid air cell thickening. IMPRESSION: No acute intracranial abnormality. Left temporal lobe encephalomalacia may be from remote infarct.
[2024-03-20 15:30] LABS: PT Prothrombin Time 14.1 SECONDS (9.4-12.5); Protime INR 1.27
[2024-03-20 15:45] LABS: Albumin 3.1 g/dL (3.4-5.0); Albumin/Globulin Ratio 0.8 (1.1-1.8); Anion Gap 5.4 mEq/L (5.0-15.0); Bilirubin Direct 0.2 mg/dL (0-0.2); Bilirubin Indirect, Calculated 0.4 mg/dL (0.2-0.8); Bilirubin Total 0.6 mg/dL (0.2-1.0); Globulin 3.9 g/dL (2.3-3.5); Magnesium 2.1 mg/dL (1.6-2.4); Potassium 4.4 mEq/L (3.5-5.1); Troponin High Sensitivity 6.9 pg/mL (<58.9)
--- NOTE | 2024-03-20 15:46 | RAD REPORT ---
EXAM: Chest Single View HISTORY: COUGH COMPARISON: 01/16/2024 FINDINGS: LUNGS/PLEURA: The lungs are clear. No pleural effusions or pneumothorax. No pulmonary edema. MEDIASTINUM: The mediastinal silhouette is within normal limits. CARDIAC: The cardiac silhouette is within normal limits. UPPER ABDOMEN: No significant abnormality. BONES: No acute fracture. LINES/TUBES/OTHER: N/A IMPRESSION: No evidence of acute cardiopulmonary disease.
[2024-03-20 17:16] LABS: Specific Gravity 1.021 (1.005-1.030); Sqamous Epithelial <5 /HPF (None Seen); Urine Bacteria <20 /HPF (<20); Urine Bilirubin NEGATIVE (Negative); Urine Blood Negative (Negative); Urine Clarity Extremely Turbid (Clear); Urine Color Yellow (Yellow); Urine Crystals Unidentified Many /HPF (None Seen); Urine Culture Reflex Order REFLEXED; Urine Glucose NEGATIVE (Negative); Urine Ketones NEGATIVE (Negative); Urine Microscopic Reflex YN ORDER UMIC; Urine Mucus Slight /HPF (None Seen); Urine Nitrite 1+ (Negative); Urine Protein TRACE (Negative); Urine RBC <5 /HPF (None Seen); Urine Urobilinogen 2+ (Normal); Urine WBC >50 /HPF (<5); Urine WBC Clump Few /HPF (None Seen); Urine Yeast (Budding) Many /HPF (None Seen)
[2024-03-20] MEDS ORDERED: CEFTRIAXONE 1000 MG/VIAL ONE (17:49)
[2024-03-20] MEDS ORDERED: NA CHLORIDE 0.9% 500 ML ONE (17:49)
[2024-03-20] MEDS ORDERED: CEFDINIR 300 MG CAP PO ONE (17:49)
--- NOTE | 2024-03-20 18:17 | RAD REPORT ---
Stone Protocol CLINICAL INDICATION: Male, 73 years old.FLANK PAIN TECHNIQUE: CT abdomen and pelvis was performed, without IV contrast, as per department protocol using a CT stone protocol. Axial, sagittal and coronal reconstructions were obtained. One or more of the following dose reduction techniques were used: Automated exposure control, adjustment of the mA and/o r kV according to the patient size, and/or iterative reconstruction. Unless otherwise specified, incidental findings do not require dedicated imaging follow-up. [id number]. IV CONTRAST: Not administered. COMPARISON: None FINDINGS: The lack of intravenous contrast limits the sensitivity of this exam for evaluation of solid visceral organs, vascular structures, and retroperitoneum. LOWER CHEST: The visualized lung bases are clear. LIVER: Normal in size and contour. No focal lesion. GALLBLADDER/BILE DUCTS: Cholelithiasis. No CT evidence of acute cholecystitis.? PANCREAS: No mass, ductal dilation, or amanda-pancreatic fluid. SPLEEN: Normal size. No focal lesion. ADRENALS: Normal; no mass. KIDNEYS AND URETERS: Bilateral renal lesions which are either benign in appearance or too small to ac curately characterize but statistically benign. A lesion in the left kidney has some layering hyperdensity consistent with a hemorrhagic cyst. URINARY BLADDER: Normal contour. GASTROINTESTINAL TRACT: Stomach is non-dilated. Small bowel has normal course and caliber. No colonic wall thickening or pericolonic inflammatory changes. PERITONEUM: No free fluid. ABDOMINAL AORTA AND OTHER VESSELS: Iliac stents. Bilateral SFA stents. REPRODUCTIVE ORGANS: No pathologic process. MUSCULOSKELETAL: No acute or suspicious osseous abnormality. L4-S1 fusion with interbody cages. Sever e hip degenerative changes on the right. ADDITIONAL FINDINGS: None. IMPRESSION: No acute or significant abnormalities in the abdomen or pelvis, with evaluation limited by lack of IV contrast.
--- NOTE | 2024-03-20 19:14 | EDPHYS ---
Physician Documentation [facility] Name: Александр Henderson Age: 73 yrs Sex: Male : 1950 Arrival Date: 03/20/2024 Time: 14:37 Bed 5 Private MD: ED Physician Santos Reyes HPI: 03/20 17:40 This 73 yrs old Black Male presents to ER via EMS with complaints of Dizziness. asya 17:40 The patient presents with dizziness, generalized weakness. Onset: The symptoms/episode asya began/occurred 1 day(s) ago. Context: occurred at an unknown location, occurred while the patient was unk. Modifying factors: The symptoms are alleviated by nothing, the symptoms are aggravated by nothing. Associated signs and symptoms: The patient has no apparent associated signs or symptoms. Severity of symptoms: At their worst the symptoms were mild in the emergency department the symptoms are unchanged. Patient's baseline: Neuro: alert and fully oriented. The patient has experienced similar episodes in the past, a few times. Historical: - Allergies: 14:50 No Known Allergies; ko1 - Home Meds: 14:50 clopidogrel oral [Active]; Eliquis oral [Active]; lisinopril Oral [Active]; tamsulosin ko1 oral [Active]; atorvastatin oral [Active]; - PMHx: 14:50 chronic kidney disease; CVA; GERD; Glaucoma; Hypertension; spinal stenosis; ko1 - Immunization history:: Adult Immunizations up to date. - Infectious Disease History:: Denies. - Social history:: Smoking status: Patient/guardian denies using tobacco, but has a distant history of tobacco abuse. - Family history:: not pertinent. ROS: 17:40 Constitutional: Negative for fever, chills, and weight loss, Eyes: Negative for injury, asya pain, redness, and discharge, ENT: Negative for injury, pain, and discharge, Neck: Negative for injury, pain, and swelling, Cardiovascular: Negative for chest pain, palpitations, and edema, Respiratory: Negative for shortness of breath, cough, wheezing, and pleuritic chest pain, Abdomen/GI: Negative for abdominal pain, nausea, vomiting, diarrhea, and constipation, Back: Negative for injury and pain, : Negative for injury, bleeding, discharge, and swelling, MS/Extremity: Negative for injury and deformity, Skin: Negative for injury, rash, and discoloration, Psych: Negative for depression, anxiety, suicide ideation, homicidal ideation, and hallucinations, Allergy/Immunology: Negative for hives, rash, and allergies, Endocrine: Negative for neck swelling, polydipsia, polyuria, polyphagia, and marked weight changes, Hematologic/Lymphatic: Negative for swollen nodes, abnormal bleeding, and unusual bruising, 17:40 Neuro: Positive for dizzy, Exam: 17:40 Constitutional: This is a well developed, well nourished patient who is awake, alert, asya and in no acute distress. Head/Face: Normocephalic, atraumatic. Eyes: Pupils equal round and reactive to light, extra-ocular motions intact. Lids and lashes normal. Conjunctiva and sclera are non-icteric and not injected. Cornea within normal limits. Periorbital areas with no swelling, redness, or edema. ENT: Nares patent. No nasal discharge, no septal abnormalities noted. Tympanic membranes are normal and external auditory canals are clear. Oropharynx with no redness, swelling, or masses, exudates, or evidence of obstruction, uvula midline. Mucous membranes moist. Neck: Trachea midline, no thyromegaly or masses palpated, and no cervical lymphadenopathy. Supple, full range of motion without nuchal rigidity, or vertebral point tenderness. No Meningismus. Chest/axilla: Normal chest wall appearance and motion. Nontender with no deformity. No lesions are appreciated. Cardiovascular: Regular rate and rhythm with a normal S1 and S2. No gallops, murmurs, or rubs. Normal PMI, no JVD. No pulse deficits. Respiratory: Lungs have equal breath sounds bilaterally, clear to auscultation and percussion. No rales, rhonchi or wheezes noted. No increased work of breathing, no retractions or nasal flaring. Abdomen/GI: Soft, non-tender, with normal bowel sounds. No distension or tympany. No guarding or rebound. No evidence of tenderness throughout. Back: No spinal tenderness. No costovertebral tenderness. Full range of motion. Male : Normal genitalia with no discharge or lesions. Skin: Warm, dry with normal turgor. Normal color with no rashes, no lesions, and no evidence of cellulitis. MS/ Extremity: Pulses equal, no cyanosis. Neurovascular intact. Full, normal range of motion. Neuro: Awake and alert, GCS 15, oriented to person, place, time, and situation. Cranial nerves II-XII grossly intact. Motor strength 5/5 in all extremities. Sensory grossly intact. Cerebellar exam normal. Normal gait. Psych: Awake, alert, with orientation to person, place and time. Behavior, mood, and affect are within normal limits. 17:40 ECG was reviewed by the Attending Physician. Vital Signs: 14:47 BP 157 / 92; Pulse 50; Resp 16; Temp 97.4; Pulse Ox 100% on R/A; ko1 15:28 BP 173 / 77; Pulse 47; Resp 15; Pulse Ox 100% on R/A; ko1 16:32 BP 143 / 80; Pulse 48; Resp 16; Pulse Ox 99% ; ko1 18:31 BP 165 / 72; Pulse 49; Resp 15; Pulse Ox 100% ; bp 20:00 BP 143 / 80; Pulse 49; Resp 18; Pulse Ox 100% ; cp4 MDM: 14:59 Medical Screening Exam initiated asya 17:43 Differential diagnosis: cardiac arrhythmia, CVA, generalized weakness, GI bleed, asya idiopathic dizziness, near-syncope, TIA. Data reviewed: vital signs, nurses notes, lab test result(s), EKG, radiologic studies, CT scan, doppler, plain films. Consideration of Admission/Observation Patient was admitted/placed on observation. Escalation of care including admission/observation considered. I considered the following discharge prescriptions or medication management in the emergency department Medications were administered in the Emergency Department. See MAR. Independent interpretation of the following test(s) in the Emergency Department EKG: See my EKG interpretation above. Test considered but Not performed: Ultrasound no 2 d echo. Historians other than the Patient: Family Member: sister well informed. Care significantly affected by the following chronic conditions: Hypertension, Chronic Kidney Disease, spinal stenosis, glaucoma, cva, gerd. 03/20 15:01 Order name: Basic Metabolic Panel; Complete Time: 17:14 [facility] 03/20 15: Order name: CBC with Diff; Complete Time: 17:14 [facility] 03/20 15:01 Order name: LFT's; Complete Time: 17:14 [facility] 03/20 15:01 Order name: Magnesium; Complete Time: 17:14 [facility] 03/20 15:01 Order name: NT PRO-BNP; Complete Time: 17:14 [facility] 03/20 15:01 Order name: PT-INR; Complete Time: 17:14 [facility] 03/20 15:01 Order name: Troponin HS; Complete Time: 17:14 [facility] 03/20 15:01 Order name: Lipase; Complete Time: 17:14 [facility] 03/20 15:01 Order name: Urinalysis w/ reflexes; Complete Time: 17:32 [facility] 03/20 17:19 Order name: Urine Culture [facility] 03/20 15:01 Order name: XRAY Chest (1 view); Complete Time: 17:14 [facility] 03/20 15:01 Order name: CT Head Brain wo Cont; Complete Time: 17:14 [facility] 03/20 17:40 Order name: CT Stone Protocol; Complete Time: 18:51 [facility] 03/20 17:40 Order name: US Carotid Artery Bilateral [facility] 03/20 15:01 Order name: Cardiac monitoring; Complete Time: 15:02 [facility] 03/20 15:01 Order name: EKG - Nurse/Tech; Complete Time: 15:12 [facility] 03/20 15:01 Order name: IV Saline Lock; Complete Time: 15:12 [facility] 03/20 15:01 Order name: Labs collected and sent; Complete Time: 15:12 [facility] 03/20 15:01 Order name: O2 Per Protocol; Complete Time: 15:02 [facility] 03/20 15:01 Order name: O2 Sat Monitoring; Complete Time: 15:02 [facility] EC:40 Rate is 47 beats/min. Rhythm is regular. QRS Breeden is Normal. [place] interval is normal. QRS asya interval is normal. QT interval is normal. No Q waves. T waves are Normal. No ST changes noted. Clinical impression: Sinus bradycardia and No evidence of ischemia. Interpreted by me. Reviewed by me. Administered Medications: 16:31 Drug: NS 0.9% IV 500 ml IV at bolus once; to be given as a bolus over 30 minutes Route: ko1 IV; Rate: bolus; Site: right antecubital; 18:02 Drug: Rocephin IV 1 grams IV at per protocol once; Given slow IV push per pharmacy bp instructions Route: IV; Rate: per protocol; Site: right forearm; 18:02 Drug: Cefdinir PO Suspension 300 mg PO once Route: PO; bp 19:59 Follow up: Response: No adverse reaction cp4 18:02 Drug: NS 0.9% IV 500 ml 500 ml IV at 1 bolus once; to be given as a bolus over 30 bp minutes Volume: 500 ml; Route: IV; Rate: 1 bolus; Site: right forearm; 19:59 Follow up: IV Status: Completed infusion cp4 19:59 Drug: Ciprofloxacin PO 250 mg PO once Route: PO; cp4 19:59 Follow up: Response: No adverse reaction cp4 Disposition Summary: 03/20/24 19:14 Discharge Ordered Notes: Location: Home asya Problem: new asya Symptoms: have improved asya Condition: Stable asya Diagnosis - Dizziness and giddiness asya - Bradycardia, unspecified asya - UTI/ Urinary tract infection, site not specified asya - terminal operations supervisor (current) use of anticoagulants asya Followup: asya - With: Private Physician - When: 2 - 3 days - Reason: Recheck today's complaints, Continuance of care, Re-evaluation by your physician Followup: asya - With: Rodrigo Dias MD - When: 2 - 3 days - Reason: Recheck today's complaints, Re-evaluation by your physician Followup: asya - With: Guzman Moreno MD - When: 2 - 3 days - Reason: Recheck today's complaints, Re-evaluation by your physician Discharge Instructions: - Discharge Summary Sheet asya - Bradycardia, Adult asya - Dizziness asya - Fall Prevention in the Home, Adult asya - Urinary Tract Infection, Adult asya - Urinary Tract Infection, Adult, [id number] asya - Fall Prevention in the Home, Adult, [id number] [facility] Forms: - Medication Reconciliation Form [facility] - Antibiotic Education asya - Prescription Opioid Use [facility] - Patient Portal Instructions [facility] - Leadership Thank You Letter [facility] Prescriptions: - cefdinir 300 mg Oral capsule - take 1 capsule ORAL route every 12 hours for 10 days; 20 capsule; Refills: 0, [facility] Product Selection Permitted - Cipro 250 mg Oral tablet - take 1 tablet ORAL route every 12 hours; 10 tablet; Refills: 0, Product [facility] Selection Permitted - Meclizine 25 mg Oral tablet - take 1 tablet ORAL route every 8 hours As needed; 21 tablet; Refills: 0, [facility] Product Selection Permitted Signatures: Dispatcher [employer] Santos Ramirez MD MD cha Peltier, Brian, RN RN Leonor Lal RN RN Jennifer Stovall cp4 Corrections: (The following items were deleted from the chart) 15:01 15:01 BASIC METABOLIC PANEL+C.LAB.BRZ ordered. EDMS EDMS 15:01 15:01 CBC+H.LAB.BRZ ordered. EDMS EDMS 15:01 15:01 HEPATIC FUNCTION+C.LAB.BRZ ordered. EDMS EDMS 15:01 15:01 MAGNESIUM+C.LAB.BRZ ordered. EDMS EDMS 15:01 15:01 PROBNP+C.LAB.BRZ ordered. EDMS EDMS 15:01 15:01 PROTIME (+INR)+COAG.LAB.BRZ ordered. EDMS EDMS 15:01 15:01 Troponin High Sensitivity+C.LAB.BRZ ordered. EDMS EDMS 15:01 15:01 LIPASE+C.LAB.BRZ ordered. EDMS EDMS 15:01 15:01 Urinalysis+U.LAB.BRZ ordered. EDMS EDMS 15:01 15:01 Chest Single View+RAD.RAD.BRZ ordered. EDMS EDMS 15:02 15:02 Head Brain Wo Cont+CT.RAD.BRZ ordered. EDMS EDMS
--- NOTE | 2024-03-20 19:14 | ER ---
Nurse's Notes [facility] Name: Александр Henderson Age: 73 yrs Sex: Male : 1950 Arrival Date: 03/20/2024 Time: 14:37 Bed 5 Private MD: Diagnosis: Dizziness and giddiness;Bradycardia, unspecified;UTI/ Urinary tract infection, site not specified;termite technician (current) use of anticoagulants Presentation: 03/20 14:47 Chief complaint: EMS states: Called out for chest pain initially but on arrival it ko1 wasn't chest pain, it was dizziness. Patient thinks daughter may be giving him a med that is not prescribed. 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 Coronavirus screen: At this time, the client does not indicate any symptoms associated with coronavirus-19. Ebola Screen: No symptoms or risks identified at this time. Initial Sepsis Screen: Does the patient meet any 2 criteria? No. Patient's initial sepsis screen is negative. Does the patient have a suspected source of infection? No. Patient's initial sepsis screen is negative. Risk Assessment: Do you want to hurt yourself or someone else? Patient reports no desire to harm self or others. Onset of symptoms was March 17, 2024. Care prior to arrival: Glucose check: 137. 14:47 Method Of Arrival: EMS: [facility] ko1 14:47 Acuity: BILLIE 3 ko1 Triage Assessment: 14:50 General: Appears in no apparent distress. Behavior is calm, cooperative, appropriate ko1 for age. Pain: Denies pain. EENT: No deficits noted. Neuro: No deficits noted. Cardiovascular: Reports lightheadedness. Respiratory: No deficits noted. GI: No deficits noted. : No deficits noted. Derm: No deficits noted. Musculoskeletal: No deficits noted. Historical: - Allergies: 14:50 No Known Allergies; ko1 - Home Meds: 14:50 clopidogrel oral [Active]; Eliquis oral [Active]; lisinopril Oral [Active]; tamsulosin ko1 oral [Active]; atorvastatin oral [Active]; - PMHx: 14:50 chronic kidney disease; CVA; GERD; Glaucoma; Hypertension; spinal stenosis; ko1 - Immunization history:: Adult Immunizations up to date. - Infectious Disease History:: Denies. - Social history:: Smoking status: Patient/guardian denies using tobacco, but has a distant history of tobacco abuse. - Family history:: not pertinent. Screenin:[address] [facility] ED Fall Risk Assessment (Adult) History of falling in the last 3 months, ko1 including since admission No falls in past 3 months (0 pts) Confusion or Disorientation No (0 pts) Intoxicated or Sedated No (0 pts) Impaired Gait Yes (1 pt) Mobility Assist Device Used Yes (1 pt) Altered Elimination No (0 pt) Score/Fall Risk Level 0 - 2 = Low Risk Oriented to surroundings, Maintained a safe environment, Educated pt \T\ family on fall prevention, incl call for assistance when getting out of bed, Assessed \T\ reinforced patient's understanding of fall precautions, Provided non-skid footwear, Hourly rounding (assess needs \T\ fall precautionary measures) done. Abuse screen: Denies threats or abuse. Denies injuries from another. Nutritional screening: No deficits noted. Tuberculosis screening: No symptoms or risk factors identified. Assessment: 14:53 Reassessment: see triage note. ko1 18:31 Reassessment: Patient appears in no apparent distress at this time. Patient is alert, bp oriented x 3, equal unlabored respirations, skin warm/dry/pink. Vital Signs: 14:47 BP 157 / 92; Pulse 50; Resp 16; Temp 97.4; Pulse Ox 100% on R/A; ko1 15:28 BP 173 / 77; Pulse 47; Resp 15; Pulse Ox 100% on R/A; ko1 16:32 BP 143 / 80; Pulse 48; Resp 16; Pulse Ox 99% ; ko1 18:31 BP 165 / 72; Pulse 49; Resp 15; Pulse Ox 100% ; bp 20:00 BP 143 / 80; Pulse 49; Resp 18; Pulse Ox 100% ; cp4 ED Course: 14:47 Patient arrived in ED. ko1 14:47 Leonor Reyez, VU is Primary Nurse. ko1 14:50 Triage completed. ko1 14:50 Arm band placed on right wrist. Patient placed in an exam room, on a stretcher, on ko1 classroom monitor, on pulse oximetry, Patient notified of wait time. 14:51 Santos Reyes MD is Attending Physician. asya 14:53 Patient has correct armband on for positive identification. Placed in gown. Bed in low ko1 position. Call light in reach. Side rails up X2. Provided Education on: labs, meds. Client placed on continuous cardiac and pulse oximetry monitoring. NIBP monitoring applied. youth nutritional monitor on. Door closed. Noise minimized. Lights dimmed. Warm blanket given. Pillow given. 15:13 EKG done, by ED staff, reviewed by Santos Reyes MD. ko1 15:13 Initial lab(s) drawn, by me, sent to lab. Inserted saline lock: 20 gauge in right bp antecubital area, using aseptic technique. Blood collected. Flushed with 10 mL NS. 15:19 CT Head Brain wo Cont In Process Unspecified. EDMS 15:42 XRAY Chest (1 view) In Process Unspecified. EDMS 17:01 Urine collected: clean catch specimen, cloudy. bp 17:04 Urinalysis w/ reflexes Sent. ko1 17:04 No provider procedures requiring assistance completed. ko1 18:06 CT Stone Protocol In Process Unspecified. EDMS 19:14 Rodrigo Dias MD is Referral Physician. asya 19:14 Guzman Moreno MD is Referral Physician. asya 19:37 Carotid Artery Bilateral In Process Unspecified. EDMS 19:40 Primary Nurse role handed off by Leonor Reyez RN [email or web address] 20:01 intact, bleeding controlled, No redness/swelling at site. Pressure dressing applied. cp4 Administered Medications: 16:31 Drug: NS 0.9% IV 500 ml IV at bolus once; to be given as a bolus over 30 minutes Route: ko1 IV; Rate: bolus; Site: right antecubital; 18:02 Drug: Rocephin IV 1 grams IV at per protocol once; Given slow IV push per pharmacy bp instructions Route: IV; Rate: per protocol; Site: right forearm; 18:02 Drug: Cefdinir PO Suspension 300 mg PO once Route: PO; bp 19:59 Follow up: Response: No adverse reaction cp4 18:02 Drug: NS 0.9% IV 500 ml 500 ml IV at 1 bolus once; to be given as a bolus over 30 bp minutes Volume: 500 ml; Route: IV; Rate: 1 bolus; Site: right forearm; 19:59 Follow up: IV Status: Completed infusion cp4 19:59 Drug: Ciprofloxacin PO 250 mg PO once Route: PO; cp4 19:59 Follow up: Response: No adverse reaction cp4 Medication: 14:53 VIS not applicable for this client. ko1 Outcome: 19:14 Discharge ordered by . asya 20:01 Discharged to home via wheelchair, cp4 20:01 Condition: stable 20:01 Discharge instructions given to patient, family, Instructed on discharge instructions, follow up and referral plans. medication usage, Demonstrated understanding of instructions, follow-up care, medications, Prescriptions given X 3, 20:01 Patient left the ED. cp4 Addendum: 03/23/2024 09:11 Addendum: Culture Results: Positive urine culture. No further action required. Bacteria i w sensitive to prescribed antibiotic. Signatures: Dispatcher [employer] EDMS Santos Reyes MD MD cha Williams, Irene, RN RN Magali Valentin RN RN [id number] Darrick Bernardo RN Leonor Gonzalez RN RN Jennifer Stovall 4
--- NOTE | 2024-03-20 19:48 | RAD REPORT ---
EXAMINATION: US CAROTID DUPLEX CLINICAL INDICATION: , 73 years old. DIZZINESS. TECHNIQUE: Real-time grayscale, color flow and spectral Doppler sonographic images were obtained of t extracranial carotid system using a linear transducer. [id number]. COMPARISON: [facility] 06/09/2021 FINDINGS: RIGHT: Common carotid artery: 84 cm/s Internal carotid artery: 75 cm/s External carotid artery: 81 cm/s Right ICA/CCA ratio: 1 Plaque hard and soft plaque present Vertebral artery Antegrade LEFT: Common carotid artery: 107 cm/s Internal carotid artery: 96 cm/s External carotid artery: 85 cm/s lEFT ICA/CCA ratio: 0.9 Plaque Mild Calcified and noncalcified Vertebral artery Antegrade IMPRESSION: No hemodynamically significant stenosis (greater than 50%) within the extracranial internal carotid a rayshawn.
[2024-03-20] MEDS ORDERED: CIPROFLOXACIN HCL 500 MG TAB ONE (19:49)
[2024-03-21 00:14] VITALS: TEMP 97.4
[2024-03-21 00:32] VITALS: O2SAT 100
[2024-03-21 00:33] VITALS: BP 143/80
--- NOTE | 2024-03-23 10:20 | EKG ---
Test Date: 2024-03-20 Test Time: 15:08:17 Cokeman: CATRACHO MEASUREMENT RESULTS: Intervals: Rate: 47 ID: [id number] QRSD: 74 QT: 438 QTc: 387 [place]: P: 79 ID: [id number] QRS: 72 T: 47 INTERPRETIVE STATEMENTS: Sinus bradycardia Otherwise normal ECG Compared to ECG 02/20/2024 11:01:37 No significant changes Electronically Signed On 03-23-24 10:18:15 [employer] DEVELOPER by [employer] De La [place]
== END 2024-03-20 20:01 | disposition home or self-care (01) ==
LOC: ER 14:37
DX: R42 Dizziness and giddiness (principal); R00.1 Bradycardia, unspecified; N39.0 Urinary tract infection, site not specified; Z79.01 Long term (current) use of anticoagulants; R53.1 Weakness; I12.9 Hypertensive chronic kidney disease with stage 1 through stage 4 chronic kidney disease, or unspecified chronic kidney disease; N18.9 Chronic kidney disease, unspecified; Z86.73 Personal history of transient ischemic attack (TIA), and cerebral infarction without residual deficits
CPT/HCPCS: 93005; 87088; 85025; 81001; 87086; 80048; 36415; 83735; 85610; 80076; 87077; 87186; 84484; 83690; 83880; 70450; 76377; 74176; 71045; 93880; J7040; J0696